=== PATIENT | male | born 1945 | race Caucasian/White ===

== ENCOUNTER 2017-01-25 09:41 | Emergency (ER) | payer MEDICARE, OTHER ==
[2017-01-25 10:00] VITALS: BP 148/89; TEMP 97.6; O2SAT 97
--- NOTE | 2017-01-25 10:09 | ED.PDOC ---
History of Present Illness - General Chief Complaint: Problem Stated Complaint: gentialswelling/redness, incontinent Time Seen by Provider: 01/25/17 10:01 Source: patient Exam Limitations: no limitations - History of Present Illness Initial Comments: Patient presents with intermittent incontinence for 3-4 days. He denies any dysuria nor pain anywhere. Patient has Parkinson's and his gives most of the history. She says that he has not had problems with his prostate before but that this weekend he had several episodes of incontinence and that he has never had that before. No other complaints. Patient has Parkinson's disease. Timing/Duration: other - 4 days Severity: moderate Improving Factors: nothing Worsening Factors: nothing Associated Symptoms: denies symptoms Allergies/Adverse Reactions: Allergies NO KNOWN ALLERGY Allergy (Verified 01/25/17 10:00) Home Medications: Ambulatory Orders Carboxymethylcellulose Sodium [Refresh Tears] 1 - 2 drops BOTH_EYES Q1-2H PRN # 1 bottle 11/23/14 Eplerenone 50 mg PO DAILY 11/23/14 Memantine HCl [Namenda] 10 mg PO DAILY 11/23/14 Metoprolol Succinate [Metoprolol Succinate ER] 25 mg PO DAILY 11/23/14 Moxifloxacin HCl (Ophth) [Vigamox] 1 drop RIGHT_EYE Q8HR #1 bottle 11/23/14 Olmesartan Medoxomil [Benicar] 40 mg PO DAILY 11/23/14 Rivastigmine 9.5MG/24Hr Patch [Exelon PATCH] 9.5 mg TOP DAILY 11/23/14 Rosuvastatin [Crestor] 5 mg PO DAILY 11/23/14 Sildenafil Citrate [Viagra] 100 mg PO PRN 11/23/14 amLODIPine BESYLATE [Norvasc] 5 mg PO DAILY 11/23/14 cloNIDine PATCH 0.1MG/24HR [Rskanyxz-WQL-5 Patch] 1 each TOP DAILY 11/23/14 Review of Systems - Review of Systems Constitutional: States: no symptoms reported EENTM: States: no symptoms reported Respiratory: States: no symptoms reported Cardiology: States: no symptoms reported Genitourinary: States: see HPI Musculoskeletal: States: no symptoms reported Skin: States: no symptoms reported Neurological: States: no symptoms reported Endocrine: States: no symptoms reported Hematologic/Lymphatic: States: no symptoms reported Past Medical History (General) - Patient Medical History Hx Seizures: No Hx Stroke: No Hx Dementia: Yes Hx Asthma: No Hx of COPD: No Hx Cardiac Disorders: No Hx Congestive Heart Failure: No Hx Pacemaker: No Hx Hypertension: Yes Hx Thyroid Disease: No Hx Diabetes: No Hx Gastroesophageal Reflux: No Hx Renal Disease: No Hx Cancer: No Hx of HIV: No Hx Hepatitis C: No Hx MRSA: No Surgical History: other - Vaccination History Hx Tetanus, Diphtheria Vaccination: No Hx Influenza Vaccination: Yes Hx Pneumococcal Vaccination: Yes - Social History Hx Tobacco Use: No Hx Chewing Tobacco Use: No Hx Alcohol Use: Yes Hx Substance Use: No Hx Substance Use Treatment: No Hx Depression: No Hx Physical Abuse: No Hx Emotional Abuse: No Hx Suspected Abuse: No - Activities of Daily Living Hospice Agency (if applicable):: None - Female History Patient : No Family Medical History - Family History Mother Family History: Unknown Hx Family Cancer: Yes Physical Exam - Physical Exam General Appearance: Alert Respiratory: chest non-tender, lungs clear, normal breath sounds Cardiovascular/Chest: normal peripheral pulses, regular rate, rhythm Gastrointestinal/Abdominal: normal bowel sounds, non tender, soft Skin Exam: normal color Progress - Progress Progress: 01/25/17 10:43 UA negative. Departure - Departure Clinical Impression: Incontinence Disposition: Discharge to Home or Self Care Condition: Good Departure Forms: ED Discharge - Pt. Copy, Patient Portal Self Enrollment Diet: resume usual diet Activity: increase activity as tolerated Referrals: Janeth Galloway MD [Primary Care Provider] - 1-2 Weeks Home Medications: Ambulatory Orders Carboxymethylcellulose Sodium [Refresh Tears] 1 - 2 drops BOTH_EYES Q1-2H PRN # 1 bottle 11/23/14 Eplerenone 50 mg PO DAILY 11/23/14 Memantine HCl [Namenda] 10 mg PO DAILY 11/23/14 Metoprolol Succinate [Metoprolol Succinate ER] 25 mg PO DAILY 11/23/14 Moxifloxacin HCl (Ophth) [Vigamox] 1 drop RIGHT_EYE Q8HR #1 bottle 11/23/14 Olmesartan Medoxomil [Benicar] 40 mg PO DAILY 11/23/14 Rivastigmine 9.5MG/24Hr Patch [Exelon PATCH] 9.5 mg TOP DAILY 11/23/14 Rosuvastatin [Crestor] 5 mg PO DAILY 11/23/14 Sildenafil Citrate [Viagra] 100 mg PO PRN 11/23/14 amLODIPine BESYLATE [Norvasc] 5 mg PO DAILY 11/23/14 cloNIDine PATCH 0.1MG/24HR [Zzrawsyt-TDD-8 Patch] 1 each TOP DAILY 11/23/14 Additional Instructions: See your regular doctor and your neurologist about the incontinence.
== END 2017-01-25 10:55 | disposition home or self-care (01) ==
LOC: ER 09:41
DX: R32 Unspecified urinary incontinence (principal); G20 Parkinson's disease; F02.80 Dementia in other diseases classified elsewhere, unspecified severity, without behavioral disturbance, psychotic disturbance, mood disturbance, and anxiety; I10 Essential (primary) hypertension; Z79.899 Other long term (current) drug therapy

== ENCOUNTER 2017-05-15 13:18 | Emergency (ER) | payer MEDICARE, OTHER ==
[2017-05-15 13:50] VITALS: BP 162/94; TEMP 98.6; O2SAT 98
--- NOTE | 2017-05-15 15:00 | ED.PDOC ---
History of Present Illness - General Chief Complaint: Skin/Abrasion/Tear Stated Complaint: Continued bleeding from skin graft Time Seen by Provider: 05/15/17 14:57 Source: patient, RN notes reviewed, Vital Signs reviewed, family Exam Limitations: no limitations - History of Present Illness Timing/Duration: 24 hours Severity: mild Improving Factors: nothing Worsening Factors: nothing Associated Symptoms: denies symptoms Allergies/Adverse Reactions: Allergies NO KNOWN ALLERGY Allergy (Verified 05/15/17 13:43) Home Medications: Ambulatory Orders Carboxymethylcellulose Sodium [Refresh Tears] 1 - 2 drops BOTH_EYES Q1-2H PRN # 1 bottle 11/23/14 Eplerenone 50 mg PO DAILY 11/23/14 Memantine HCl [Namenda] 10 mg PO DAILY 11/23/14 Metoprolol Succinate [Metoprolol Succinate ER] 25 mg PO DAILY 11/23/14 Moxifloxacin HCl (Ophth) [Vigamox] 1 drop RIGHT_EYE Q8HR #1 bottle 11/23/14 Olmesartan Medoxomil [Benicar] 40 mg PO DAILY 11/23/14 Rivastigmine 9.5MG/24Hr Patch [Exelon PATCH] 9.5 mg TOP DAILY 11/23/14 Rosuvastatin [Crestor] 5 mg PO DAILY 11/23/14 Sildenafil Citrate [Viagra] 100 mg PO PRN 11/23/14 amLODIPine BESYLATE [Norvasc] 5 mg PO DAILY 11/23/14 cloNIDine PATCH 0.1MG/24HR [Vlrfsfez-ISW-0 Patch] 1 each TOP DAILY 11/23/14 Review of Systems - Review of Systems Constitutional: Denies: chills, fever EENTM: Denies: ear pain, nose pain, throat pain, mouth pain Respiratory: Denies: cough, orthopnea, short of breath, wheezing Cardiology: Denies: chest pain, edema, palpitations, syncope Gastrointestinal/Abdominal: Denies: abdominal pain, constipation, diarrhea, nausea, vomiting Musculoskeletal: Denies: joint pain, joint swelling, muscle pain, muscle stiffness Skin: States: other - bleeding from op site. Denies: change in hair/nails, dryness Neurological: Denies: anxiety, depressed Past Medical History (General) - Patient Medical History Hx Seizures: No Hx Stroke: Yes - TIA's Hx Dementia: Yes Hx Asthma: No Hx of COPD: No Hx Cardiac Disorders: Yes - hypercholesterolemia Hx Congestive Heart Failure: No Hx Pacemaker: No Hx Hypertension: Yes Hx Thyroid Disease: No Hx Diabetes: No Hx Gastroesophageal Reflux: No Hx Renal Disease: No Hx Cancer: Yes - Skin CA Hx of HIV: No Hx Hepatitis C: No Hx MRSA: No - Vaccination History Hx Tetanus, Diphtheria Vaccination: No Hx Influenza Vaccination: Yes - 2017 Hx Pneumococcal Vaccination: Yes - Social History Hx Tobacco Use: No Hx Chewing Tobacco Use: No Hx Alcohol Use: Yes Hx Substance Use: No Hx Substance Use Treatment: No Hx Depression: No Hx Physical Abuse: No Hx Emotional Abuse: No Hx Suspected Abuse: No - Female History Patient : No Family Medical History - Family History Mother Family History: Unknown Hx Family Cancer: Yes Physical Exam - Physical Exam General Appearance: Alert, Comfortable Ears, Nose, Throat: other - cotton ball in place over skin graft site, blood ladden bandages to the face Neck: non-tender, full range of motion, supple, normal inspection Respiratory: chest non-tender, lungs clear, normal breath sounds Cardiovascular/Chest: normal peripheral pulses, regular rate, rhythm Gastrointestinal/Abdominal: non tender, soft Progress - Progress Progress: 05/15/17 15:02 pressure applied to wound site, bleeding stopped, would redressed Departure - Departure Clinical Impression: Post-op bleeding Time of Disposition: 13:00 Disposition: Discharge to Home or Self Care Condition: Excellent Departure Forms: ED Discharge - Pt. Copy, Patient Portal Self Enrollment Instructions: DI for Abrasion, DI for Post-Surgical Bleeding Diet: full liquid diet Activity: increase activity as tolerated Referrals: Janeth Galloway MD [Primary Care Provider] - 1-2 Weeks Home Medications: Ambulatory Orders Carboxymethylcellulose Sodium [Refresh Tears] 1 - 2 drops BOTH_EYES Q1-2H PRN # 1 bottle 11/23/14 Eplerenone 50 mg PO DAILY 11/23/14 Memantine HCl [Namenda] 10 mg PO DAILY 11/23/14 Metoprolol Succinate [Metoprolol Succinate ER] 25 mg PO DAILY 11/23/14 Moxifloxacin HCl (Ophth) [Vigamox] 1 drop RIGHT_EYE Q8HR #1 bottle 11/23/14 Olmesartan Medoxomil [Benicar] 40 mg PO DAILY 11/23/14 Rivastigmine 9.5MG/24Hr Patch [Exelon PATCH] 9.5 mg TOP DAILY 11/23/14 Rosuvastatin [Crestor] 5 mg PO DAILY 11/23/14 Sildenafil Citrate [Viagra] 100 mg PO PRN 11/23/14 amLODIPine BESYLATE [Norvasc] 5 mg PO DAILY 11/23/14 cloNIDine PATCH 0.1MG/24HR [Iuklmsra-WQF-1 Patch] 1 each TOP DAILY 11/23/14 Additional Instructions: Follow up with your MD in the AM
== END 2017-05-15 15:30 | disposition home or self-care (01) ==
LOC: ER 13:18
DX: L76.21 Postprocedural hemorrhage of skin and subcutaneous tissue following a dermatologic procedure (principal); I10 Essential (primary) hypertension; E78.00 Pure hypercholesterolemia, unspecified; Z86.73 Personal history of transient ischemic attack (TIA), and cerebral infarction without residual deficits; Z79.899 Other long term (current) drug therapy; Z85.828 Personal history of other malignant neoplasm of skin

== ENCOUNTER 2018-06-17 08:28 | Observation (INO) | payer MEDICARE, OTHER ==
--- NOTE | 2018-06-17 09:01 | ED.PDOC ---
History of Present Illness - General Chief Complaint: GI Problem Stated Complaint: blood in stool Time Seen by Provider: 06/17/18 08:53 Information Source: family Exam Limitations: clinical condition - History of Present Illness Initial Comments: Patient comes in with episode of bright red blood per rectum. Patient has advanced Parkinson's disease and dementia and the history is obtained from his . Per his he had multiple bouts of diarrhea lasts night. No abdominal pain, nausea, or emesis. No sick contacts. No fever, chills, cough, or cold symptoms. Patient has not had this problem before with exception of small blood on tissue paper years ago with hemorrhoids. Today patient let his know "I have a problem", then he showed her his adult briefs that had blood in them. She did bring it with her. He denies pain and has not had another episode since. 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 Abdominal Pain Onset Location: other - no pain Pain Radiation: no radiation Quality: other - no pain Timing/Duration: 1-3 hours Improving Factors: nothing Worsening Factors: nothing Associated Symptoms: diarrhea Review of Systems - Review of Systems Constitutional: States: no symptoms reported. Denies: chills, fever, malaise EENTM: States: no symptoms reported Respiratory: States: no symptoms reported. Denies: cough, short of breath Cardiology: States: no symptoms reported. Denies: chest pain Gastrointestinal/Abdominal: States: see HPI Genitourinary: States: no symptoms reported. Denies: dysuria, frequency Past Medical History (General) - Patient Medical History Hx Seizures: No Hx Stroke: Yes - TIA's Hx Dementia: Yes Hx Asthma: No Hx of COPD: No Hx Cardiac Disorders: Yes - hypercholesterolemia Hx Congestive Heart Failure: No Hx Pacemaker: No Hx Hypertension: Yes Hx Thyroid Disease: No Hx Diabetes: No Hx Gastroesophageal Reflux: No Hx Renal Disease: No Hx Cancer: Yes - Skin CA Hx of HIV: No Hx Hepatitis C: No Hx MRSA: No - Vaccination History Hx Tetanus, Diphtheria Vaccination: No Hx Influenza Vaccination: Yes Hx Pneumococcal Vaccination: Yes - Social History Hx Tobacco Use: No Hx Chewing Tobacco Use: No Hx Alcohol Use: Yes Hx Substance Use: No Hx Substance Use Treatment: No Hx Depression: No Hx Physical Abuse: No Hx Emotional Abuse: No Hx Suspected Abuse: No - Female History Patient : No Family Medical History - Family History Mother Family History: Unknown Hx Family Cancer: Yes Physical Exam - Physical Exam General Appearance: Alert, Comfortable, No apparent distress Eyes, Ears, Nose, Throat Exam: PERRL/EOMI, normal ENT inspection, TMs normal, pharynx normal Neck: non-tender, full range of motion, supple, normal inspection Respiratory: chest non-tender, lungs clear, normal breath sounds, no respiratory distress Cardiovascular/Chest: normal peripheral pulses, regular rate, rhythm, no edema, no gallop, no murmur Peripheral Pulses: No deficit Gastrointestinal/Abdominal: normal bowel sounds, non tender, soft Rectal Exam: normal exam, normal rectal tone, other - bright red blood <1/2 cup in adult briefs, Back Exam: normal inspection, no CVA tenderness, no vertebral tenderness Extremity: non-tender, other - compression device on RUE Neurologic: alert, other - fronzen expression with decreased motor bilaterally conistent with Parkinson's Skin Exam: normal color Progress - Progress Progress: 06/17/18 09:56 patient looks good and has no other bleeding since arrival. However, there was approximately 1/2 cup of blood in his brief and with his age and medical problems he is at high risk for sudden decompensation if he continues to bleed. Have called career development consultant ARSH Santana and he will admit for obs - Results/Orders Results/Orders: 06/17/18 09:12 TYPE AND SCREEN Stat Laboratory Results WBC 5.5 K/mm3 (4.8-10.8) 06/17/18 09:12 RBC 3.92 M/mm3 (4.70-6.10) L 06/17/18 09:12 Hgb 12.2 gm/dL (14.0-18.0) L 06/17/18 09:12 Hct 36.1 % (42.0-52.0) L 06/17/18 09:12 MCV 91.9 fl (80.0-94.0) 06/17/18 09:12 MCH 31.1 pg (27.0-31.0) H 06/17/18 09:12 MCHC 34.0 g/dL (33.0-37.0) 06/17/18 09:12 RDW 14.6 % (11.5-14.5) H 06/17/18 09:12 Plt Count 212 K/mm3 (130-400) 06/17/18 09:12 MPV 6.9 fl (7.40-10.4) L 06/17/18 09:12 Absolute Neuts (auto) 4.20 K/uL (1.8-6.8) 06/17/18 09:12 Absolute Lymphs (auto) 0.70 K/uL (1.0-3.4) L 06/17/18 09:12 Absolute Monos (auto) 0.40 K/uL (0.2-0.8) 06/17/18 09:12 Absolute Eos (auto) 0.10 K/uL (0.0-0.4) 06/17/18 09:12 Absolute Basos (auto) 0.00 K/uL (0.0-0.1) 06/17/18 09:12 Neutrophils % 77.5 % (42.0-78.0) 06/17/18 09:12 Lymphocytes % 12.9 % (20.0-50.0) L 06/17/18 09:12 Monocytes % 7.8 % (2.0-9.0) 06/17/18 09:12 Eosinophils % 1.2 % (1.0-5.0) 06/17/18 09:12 Basophils % 0.6 % (0.0-2.0) 06/17/18 09:12 PT 10.5 SECONDS (9.0-10.9) 06/17/18 09:12 INR 1.05 (0.9-1.15) 06/17/18 09:12 PTT (SP) 26.5 SECONDS (21.8-31.6) 06/17/18 09:12 Sodium 138 mmol/L (135-145) 06/17/18 09:12 Potassium 3.1 mmol/L (3.6-5.0) L 06/17/18 09:12 Chloride 106 mmol/L (101-111) 06/17/18 09:12 Carbon Dioxide 24 mmol/L (21-31) 06/17/18 09:12 Anion Gap 11.1 (12-18) L 06/17/18 09:12 BUN 22 mg/dL (7-18) H 06/17/18 09:12 Creatinine 1.00 mg/dL (0.6-1.3) 06/17/18 09:12 BUN/Creatinine Ratio 22.0 (10-20) H 06/17/18 09:12 Random Glucose 103 mg/dL (70-105) 06/17/18 09:12 Serum Osmolality 279.3 mOsm/L (275-295) 06/17/18 09:12 Calcium 9.0 mg/dL (8.4-10.2) 06/17/18 09:12 Total Bilirubin 0.5 mg/dL (0.2-1.0) 06/17/18 09:12 AST 21 IU/L (10-42) 06/17/18 09:12 ALT < 8 IU/L (10-60) L 06/17/18 09:12 Alkaline Phosphatase 54 IU/L (42-121) 06/17/18 09:12 Serum Total Protein 6.6 gm/dL (6.4-8.2) 06/17/18 09:12 Albumin 3.9 g/dl (3.2-5.5) 06/17/18 09:12 Globulin 2.7 gm/dL (2.3-3.5) 06/17/18 09:12 Albumin/Globulin Ratio 1.4 (1.1-1.9) 06/17/18 09:12 Departure - Departure Clinical Impression: Lower GI bleed Disposition: Admit Patient Condition: Good Departure Forms: ED Discharge - Pt. Copy, Patient Portal Self Enrollment Referrals: Janeth Galloway MD [Primary Care Provider] - 1-2 Weeks Home Medications: Ambulatory Orders Eplerenone 50 mg PO DAILY 11/23/14 Metoprolol Succinate [Metoprolol Succinate ER] 25 mg PO DAILY 11/23/14 Olmesartan Medoxomil [Benicar] 40 mg PO DAILY 11/23/14 Amlodipine Besylate 5 mg PO BID 06/17/18 Benfotiamine 150 mg PO AC 06/17/18 Calcium 600 mg PO DAILY 06/17/18 Carbidopa-Levodopa [Carbidopa/Levodopa 25-250 mg] 0.5 tab PO DAILY 06/17/18 Cholecalciferol [Vitamin D3] 5,000 unit PO DAILY 06/17/18 Chromium Picolinate 800 mcg PO DAILY 06/17/18 Cinnamon 1,000 mg PO DAILY 06/17/18 Coenzyme Q10 (Ubidecarenone) [Coq-10] 100 mg PO DAILY 06/17/18 Donepezil Hydrochloride [Donepezil HCl] 10 mg PO BID 06/17/18 Folic Acid,B2,B6,B12 [Cerefolin] 1 ea PO .MON,.Tue06/17/18 Hydroxyzine HCl 10 mg PO BEDTIME 06/17/18 Magnesium Gluconate 500 mg PO DAILY 06/17/18 Memantine HCl [Namenda Xr] 28 mg PO DAILY 06/17/18 [place]-3 Fatty Acids [[place]-3 Fish Oil] 1 cap PO .TUE,Tue06/17/18 Phytonadione [Vitamin K] 100 mcg PO DAILY 06/17/18 Ropinirole Hydrochloride [Ropinirole HCl] 3 mg PO TID 06/17/18 Vitamin E [Natural Vitamin E] 1,000 unit PO .TUE,Tue06/17/18 Zinc W/ Vitamin C & B6 1 tablet PO DAILY 06/17/18 Zonisamide [Zonegran] 25 mg PO TID 06/17/18 Decision To Admit - Decistion To Admit Decision to Admit Reason: Admit from ER Decision to Admit Date: 06/17/18 Decision to Admit Time: 09:58
[2018-06-17] MEDS ORDERED: SODIUM CHLORIDE 0.9% (FLUSH) 10 ML SYG IV PRN (12:39)
[2018-06-17] MEDS ORDERED: ACETAMINOPHEN 325 MG TAB PO PRN (12:39)
[2018-06-17] MEDS ORDERED: POTASSIUM CHLORIDE 20 MEQ TAB PO ONE (12:46)
[2018-06-17] MEDS ORDERED: IV SET AND CAP CHANGE INJ INJ SCH (13:00)
[2018-06-17] MEDS ORDERED: ZONISAMIDE 25 MG CAP PO SCH (15:00)
[2018-06-17] MEDS ORDERED: BENFOTIAMINE 150 MG PO SCH (16:30)
[2018-06-17 19:08] VITALS: BP 148/83; TEMP 98.3; O2SAT 99
[2018-06-17] MEDS ORDERED: amLODIPine BESYLATE 5 MG TAB PO SCH (21:00)
[2018-06-17] MEDS ORDERED: DONEPEZIL HCL 5 MG TAB PO SCH (21:00)
[2018-06-17] MEDS ORDERED: hydrOXYzine HCl 10 MG TAB PO SCH (21:00)
--- NOTE | 2018-06-18 08:16 | SSS ---
SUPERVISING PHYSICIAN: Bradley Pena MD CHIEF COMPLAINT: Blood in stools.. HISTORY OF PRESENT ILLNESS: Mr. Hansen is a 73 year-old male patient with a history of Parkinson's disease with some dementia. As he does have dementia, the majority of the history was obtained from his . His notes he has had a couple of episodes of diarrhea last night but no reported abdominal samuels, nausea or vomiting. She notes that this morning he was sitting in his chair, he does wear briefs, he brought to her attention he had a problem and when he showed her the brief, there was some blood present. She did bring the brief with her and on examination there was some obvious blood-tinged material but no gross blood clots. At the time of the admission to the Emergency Room, he denied any pain, had not had any additional episodes by the time he was seen in the Emergency Room and placed in observation this morning. He has had a colonoscopy according to his , approximately 5 years previous with no abnormal findings. He does have a past history apparently with issues with hemorrhoids but none in the recent years. Dr. Milligan, Emergency Room physician, requested the patient be placed in observation for close monitoring and further evaluation. 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 The patient was placed in observation stable condition. PAST MEDICAL HISTORY: 1. Parkinson's disease. 2. 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 3. Hypertension controlled. 4. 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 PAST SURGICAL HISTORY: 1. 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 CURRENT MEDICATIONS: 1. Vitamin-K 100 mcg daily. 2. Benfotiamine 150 mg daily. 3. Chromium Picolinate 800 mcg daily. 4. Carbidopa Levodopa 25/250 mg, one-half tablet daily. 5. Magnesium gluconate 500 mg daily. 6. Coenzyme Q10, 100 mg daily. 7. Cinnamon 1000 mg daily. 8. Vitamin E 1000 units on Tuesday and Tuesday. 9. [place] 3Fatty Acid, 1 capsule on Tuesday and Tuesday. 10. Calcium 600 mg daily. 11. Vitamin D3 5000 units daily. 12. Vitamin C and B6, 1 tablet daily. 13. Namenda XR 28 mg daily. 14. Donepezil 10 mg b.i.d. 15. Hydroxyzine 10 mg at bedtime. 16. Amlodipine 5 mg b.i.d. 17. Zonegran 25 mg t.i.d. 18. Ropinirole 3 mg t.i.d. 19. Eplerenone 50 mg daily. 20. Benicar 40 mg daily. 21. Folic acid B2, B6, B12, one tablet Tuesday and Tuesday. 22. Metoprolol succinate extended release 25 mg daily. ALLERGIES: NO KNOWN DRUG ALLERGIES. FAMILY HISTORY: Mother at age 53 due to stomach cancer complications. Father at age 84, had Alzheimer's. He has one brother who is healthy. He and his had 2 children, one son who is healthy and one secondary to complications of blood clots. 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 He lives in [place] with his and has been over 50 years. He does drink alcohol on rare occasions, normally wine, but has never smoked or used illicit drugs. His primary care physician is Dr. Janeth Galvan. REVIEW OF SYSTEMS: CONSTITUTIONAL: Negative for fevers, chills, general malaise or unintentional weight loss. HEENT: Negative for earaches, sore throats, nasal congestion. RESPIRATORY: Negative for cough, shortness of breath or wheezing. CARDIOVASCULAR: Negative for chest pain, palpitations or syncopal episodes. GASTROINTESTINAL: As noted in history of present illness. Positive for blood per rectum and diarrhea. Negative for abdominal pain, nausea or vomiting. GENITOURINARY: Negative for dysuria, hematuria polyuria. NEUROLOGICAL: Positive for Parkinson's and dementia but negative for seizures. 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 HEMATOLOGICAL: Denies any easy bruising, unexplained bleeding episodes and has no history of clotting disorders. PHYSICAL EXAMINATION: VITAL SIGNS: Temperature 97.6, pulse 63, blood pressure 139/90, respirations 16, saturation 99% on room air. At time of discharge, temperature was 97.6, pulse 56, blood pressure 129/76, respirations 20, saturation 96% on room air. Admission weight was 68.0 kg. GENERAL: The patient is well-nourished and well-hydrated. He appears to be in no acute distress, very comfortable and alert. HEENT: Tympanic membranes are clear bilaterally. Oropharynx is pink and moist without any lesions. NECK: Supple, non-tender, full range of motion, no jugular venous distention. CHEST: Clear to auscultation bilaterally without any rhonchi, rales, or wheezes. CARDIOVASCULAR: Heart regular rate and rhythm without appreciable murmurs, rubs, or gallops. ABDOMEN: Soft, non-tender, positive bowel sound. Retrogram deferred, done by Dr. Milligan in the Emergency Room and reported normal exam, normal rectal tone and as noted on admission, bright red blood in patient's brief. BACK: Normal inspection, no CVA tenderness or vertebral tenderness. EXTREMITIES: Moves all extremities all ad hunter. He does have a compression device to the right upper extremity for chronic lymphedema. Lower extremities just show a trace of edema, no clubbing or cyanosis. NEUROLOGIC: He is alert, very slow in movement but is bilateral and is consistent for Parkinson's and per is at baseline neurological status. He has a very flat affect but does answer questions. SKIN: [place], warm and dry with no lesions or rashes. LABORATORY: CBC on admission showed a white count of 5,500 with hemoglobin initially of 12.2, hematocrit 36.1, platelet count at 212,000, differential without a left shift. Repeat H&H at 4 hours showed hemoglobin 11.9 and hematocrit 35.5. Again, prior to discharge, at 12 hours post admission hemoglobin was 12, hematocrit 34.8. Coagulation studies showed normal PT/PTT. Chemistries showed just a mild low potassium at 3.1, BUN slightly elevated at 22, creatinine 1, glucose 103. Liver functions showed to be within normal limits. RADIOLOGY: No radiographic studies were completed. HOSPITAL COURSE: Mr. Hansen was placed in observation from the Emergency Room with concerns for a possible GI blood by red blood per rectum as noted in the history of present illness. He was without any pain on admission and initial H&H again showed to be hemoglobin at 12.2 and hematocrit 36.1. Once on the medical/surgical floor, the patient was observed on telemetry and closely monitored with repeat serial H&H with last one prior to discharge showing hemoglobin 12.0 and hematocrit 34.8. The patient had no recurrence of any diarrhea, no recurrence of bright red blood per rectum, was not having any pain. He had tolerated lunch and dinner without any complications and was showing stable vital signs. It was felt he was demonstrating no acute bleed at that point and after further discussion with both the patient and his , the decision was to discharge home as they live right next to the hospital and then have a repeat H&H and potassium on Tuesday as an outpatient and to followup with his primary care physician next week. I did give warnings as to return to the hospital should he have any recurrence of bleeding or any other concerning symptoms. Both patient and his voiced understanding of discharge instructions and were in agreement to care plan. In regards to his hypokalemia, he was given one single oral dose of potassium. ADMISSION DIAGNOSIS: 1. Rectal bleed, uncertain etiology, possible hemorrhoids. 2. Electrolyte imbalanc to include hypokalemia. 3. Diarrhea with no reported complications or pain or nausea. 4. History of Parkinson's with dementia. 5. Hypertension. DISCHARGE DIAGNOSIS: 1. Rectal bleeding likely source to be hemorrhoids but needing close followup with GI specialist at discharge with no further episodes of bleeding prior to discharge. 2. Electrolyte imbalance to include hypokalemia. 3. Diarrhea with no reported complications or pain or nausea. 4. History of Parkinson's with dementia. 5. Hypertension. PLAN: Mr. Hansen was discharged after a brief observation. Again, he was showing no recurrence of symptoms, no more bright red blood per rectum and was showing to be very comfortable and tolerating diet. He was instructed that he should followup with Dr. Galvan, his primary care physician in [place] and call her next week for a followup appointment. He certainly will need a colonoscopy and followup with GI specialist. After talking to the , his last colonoscopy was done in [place] with Dr. Cole. I did recommend that they at least touch base with Dr. Cole to get a followup appointment with him as well. She was given warnings that if he had any recurrence of symptoms or other worsening symptoms, she is to bring him back to the Emergency Room for further evaluation. I made arrangements to have outpatient labs done on Tuesday to include a hemoglobin and hematocrit and a recheck of potassium level. Continue diet at discharge, regular diet as tolerated. Activities to increase as tolerated. Care: Repeat H&H and potassium level as outpatient on Tuesday. No medications were prescribed at discharge. All home medications prior to admission were continued as is. CONDITION ON DISCHARGE: Stable. DISPOSITION: Patient was discharged to the care of his . #[id number] [facility]
[2018-06-18] MEDS ORDERED: NON-FORMULARY MEDICATION 1 EA MIS (Memantine Hcl [Namenda Xr] 28 MG) PO SCH (09:00)
[2018-06-18] MEDS ORDERED: NON-FORMULARY MEDICATION 1 EA MIS (Olmesartan Medoxomil [Benicar] 40 MG) PO SCH (09:00)
[2018-06-18] MEDS ORDERED: METOPROLOL SUCCINATE XL 25 MG TAB PO SCH (09:00)
[2018-06-18] MEDS ORDERED: CARBIDOPA PO SCH (09:00)
[2018-06-18] MEDS ORDERED: LEVODOPA PO SCH (09:00)
[2018-06-18] MEDS ORDERED: EPLERENONE 50 MG PO SCH (09:00)
[2018-06-18] MEDS ORDERED: [UNRECOGNIZED DRUG - OTHER] PO SCH (09:00)
== END 2018-06-17 19:35 | disposition home or self-care (01) ==
LOC: ER 08:28 → MS 10:38
PROVIDERS: ADMIT Nurse Practitioner Family; ATTEND Nurse Practitioner Family
DX: K62.5 Hemorrhage of anus and rectum (principal); E87.6 Hypokalemia; E87.8 Other disorders of electrolyte and fluid balance, not elsewhere classified; R19.7 Diarrhea, unspecified; G20 Parkinson's disease; F02.80 Dementia in other diseases classified elsewhere, unspecified severity, without behavioral disturbance, psychotic disturbance, mood disturbance, and anxiety; I10 Essential (primary) hypertension; E78.00 Pure hypercholesterolemia, unspecified; Z79.899 Other long term (current) drug therapy; Z85.89 Personal history of malignant neoplasm of other organs and systems; Z80.0 Family history of malignant neoplasm of digestive organs; Z86.73 Personal history of transient ischemic attack (TIA), and cerebral infarction without residual deficits

== ENCOUNTER → 2018-06-19 | Outpatient (CLI) | payer MEDICARE, OTHER | LOC: LAB.O 10:15 | PROVIDERS: ATTEND Nurse Practitioner Family | DX: K62.5 Hemorrhage of anus and rectum (principal); E87.6 Hypokalemia ==

== ENCOUNTER → 2018-07-28 | Outpatient (CLI) | payer MEDICARE, OTHER ==
--- NOTE | 2018-07-28 09:37 | US ---
EXAM DESCRIPTION: Venous,Upper Extremity RT CLINICAL HISTORY: PAIN IN RIGHT UPPER ARM COMPARISON: None Available. TECHNIQUE: Right upper extremity venous duplex with grayscale and color Doppler images FINDINGS: Doppler evaluation of the right upper extremity deep veins was performed. Normal color flow is seen in the right internal jugular vein, right subclavian, axillary and basilic veins as well as right brachial, radial and ulnar veins. The cephalic vein area of the upper arm was surveyed but the cephalic vein was not seen. Cephalic vein is seen more distally with no thrombosis. Normal venous compressibility and flow augmentation. Large septated fluid collection at the right elbow is seen in palpable swollen area which measures 5 x 3.8 x 4 cm. Internal septations are noted. If this is posterior in location, olecranon bursitis would be most likely which can be seen related to trauma or gout. This is anterior in location, lymphocele, seroma or old hematoma might all be considered. Clinical correlation recommended. Edematous changes in the right forearm are noted. IMPRESSION: Negative for evidence of deep venous thrombosis on right upper extremity venous Doppler sonogram. Large fluid collection at the level of the right elbow. Electronically signed by: Gurjti Chambers MD 07/28/2018 9:34 AM [employer]
== END ==
LOC: US 08:30
PROVIDERS: ATTEND Family Medicine
DX: M79.621 Pain in right upper arm (principal); M25.421 Effusion, right elbow

== ENCOUNTER 2018-08-14 08:26 | Observation (INO) | payer MEDICARE, OTHER ==
--- NOTE | 2018-08-14 09:15 | ED.PDOC ---
History of Present Illness - General Chief Complaint: Respiratory Problem Stated Complaint: Pt complains of persistent cough and general weak Time Seen by Provider: 08/14/18 09:00 Source: family Exam Limitations: other - HPI AND ROS LIMITED DUE TO DEMENTIA - History of Present Illness Timing/Duration: getting worse Severity: moderate Improving Factors: nothing Worsening Factors: nothing Associated Symptoms: cough, other - GENERALIZED WEAKNESS Allergies/Adverse Reactions: Allergies NO KNOWN ALLERGY Allergy (Verified 08/14/18 09:00) Home Medications: Ambulatory Orders Eplerenone 50 mg PO DAILY 11/23/14 Metoprolol Succinate [Metoprolol Succinate ER] 25 mg PO DAILY 11/23/14 Olmesartan Medoxomil [Benicar] 40 mg PO DAILY 11/23/14 Amlodipine Besylate 5 mg PO BID 06/17/18 Benfotiamine 150 mg PO TID 06/17/18 Calcium 600 mg PO BID 06/17/18 Carbidopa-Levodopa [Carbidopa/Levodopa 25-250 mg] 0.5 tab PO TID 06/17/18 Cholecalciferol [Vitamin D3] 5,000 unit PO DAILY 06/17/18 Chromium Picolinate 800 mcg PO DAILY 06/17/18 Cinnamon 1,000 mg PO DAILY 06/17/18 Coenzyme Q10 (Ubidecarenone) [Coq-10] 100 mg PO DAILY 06/17/18 Donepezil Hydrochloride [Donepezil HCl] 10 mg PO BID 06/17/18 Folic Acid,B2,B6,B12 [Cerefolin] 1 ea PO .MON,.Tue06/17/18 Hydroxyzine HCl 10 mg PO BEDTIME 06/17/18 Magnesium Gluconate 500 mg PO DAILY 06/17/18 Memantine HCl [Namenda Xr] 28 mg PO DAILY 06/17/18 [place]-3 Fatty Acids [[place]-3 Fish Oil 500 mg] 1 cap PO .TUE,Tue06/17/18 Phytonadione [Vitamin K] 100 mcg PO DAILY 06/17/18 Ropinirole Hydrochloride [Ropinirole HCl] 3 mg PO TID 06/17/18 Vitamin E [Natural Vitamin E] 1,000 unit PO .TUE,Tue06/17/18 Zinc W/ Vitamin C & B6 1 tablet PO DAILY 06/17/18 Zonisamide [Zonegran] 25 mg PO TID 06/17/18 Review of Systems - Review of Systems Constitutional: States: weakness. Denies: chills, fever EENTM: Denies: nose congestion Respiratory: States: cough. Denies: short of breath Cardiology: Denies: chest pain, syncope Gastrointestinal/Abdominal: Denies: diarrhea, vomiting Genitourinary: Denies: frequency, hematuria Musculoskeletal: States: joint swelling Skin: Denies: change in color, lesions Neurological: States: weakness Endocrine: States: no symptoms reported Hematologic/Lymphatic: States: no symptoms reported Past Medical History (General) - Patient Medical History Hx Seizures: No Hx Stroke: No Hx Dementia: Yes Hx Asthma: No Hx of COPD: No Hx Cardiac Disorders: No Hx Congestive Heart Failure: No Hx Pacemaker: No Hx Hypertension: Yes Hx Thyroid Disease: No Hx Diabetes: No Hx Gastroesophageal Reflux: No Hx Renal Disease: No Hx Cancer: Yes - Sacoma R arm Hx of HIV: No Hx Hepatitis C: No Hx MRSA: No - Vaccination History Hx Tetanus, Diphtheria Vaccination: Yes Hx Influenza Vaccination: Yes Hx Pneumococcal Vaccination: Yes Immunizations Up to Date: Yes - Social History Hx Tobacco Use: No Hx Chewing Tobacco Use: No Hx Alcohol Use: Yes - None recent Hx Substance Use: No Hx Substance Use Treatment: No Hx Depression: No Hx Physical Abuse: No Hx Emotional Abuse: No Hx Suspected Abuse: No - Female History Patient is a Female of Child Bearing Age (10 -59 yrs old): No Patient : No Family Medical History - Family History Mother Family History: Unknown Living Status: Unknown Hx Family Cancer: Yes Physical Exam - Physical Exam General Appearance: Alert, Comfortable, No apparent distress, Well Developed, Well Groomed, Well Hydrated Eye Exam: bilateral normal ENT Exam: hearing grossly normal Neck: supple, normal inspection Respiratory: lungs clear, normal breath sounds, no respiratory distress Cardiovascular/Chest: regular rate, rhythm, no murmur, bradycardia Gastrointestinal/Abdominal: normal bowel sounds, non tender, soft Extremity: non-tender, swelling - CHRONIC LYMPHEDEMA TO RIGHT ARM AND RIGHT LEG Neurologic: alert Skin Exam: normal color, warm/dry Lymphatic: no adenopathy Progress - Progress Progress: 08/14/18 11:10 PT RESTING COMFORTABLY, LABS AND DIAGNOSTICS DISCUSSED WITH FAMILY AT BEDSIDE. WILL TREAT SINUSITIS WITH ORAL AUGMENTIN AND WILL ADMIT FOR IV FLUIDS. - Results/Orders Results/Orders: Laboratory Tests 08/14/18 08/14/18 08/14/18 09:08 09:08 09:08 WBC 6.0 RBC 3.77 L Hgb 11.6 L Hct 34.4 L MCV 91.2 MCH 30.7 MCHC 33.7 RDW 13.8 Plt Count 227 MPV 7.7 Absolute Neuts (auto) 4.50 Absolute Lymphs (auto) 0.70 L Absolute Monos (auto) 0.60 Absolute Eos (auto) 0.10 Absolute Basos (auto) 0.00 Neutrophils % 75.1 Lymphocytes % 12.2 L Monocytes % 10.6 H Eosinophils % 1.4 Basophils % 0.7 Sodium 137 Potassium 3.5 L Chloride 103 Carbon Dioxide 24 Anion Gap 13.5 BUN 18 Creatinine 1.05 BUN/Creatinine Ratio 17.1 Random Glucose 93 Serum Osmolality 275.4 Calcium 8.8 Total Bilirubin 0.6 AST 18 ALT < 8 L Alkaline Phosphatase 62 Creatine Kinase 70 CK-MB (CK-2) 2.1 CK-MB (CK-2) % 3.00 Troponin I < 0.02 B-Natriuretic Peptide 123.0 H Serum Total Protein 7.1 Albumin 3.7 Globulin 3.4 Albumin/Globulin Ratio 1.1 Urine Color Urine Appearance Urine pH Ur Specific [place] Urine Protein Urine Glucose (UA) Urine Ketones Urine Blood Urine Nitrite Urine Bilirubin Urine Urobilinogen Ur Leukocyte Esterase Urine RBC Urine WBC Ur Epithelial Cells Amorphous Sediment Urine Bacteria 08/14/18 09:40 WBC RBC Hgb Hct MCV MCH MCHC RDW Plt Count MPV Absolute Neuts (auto) Absolute Lymphs (auto) Absolute Monos (auto) Absolute Eos (auto) Absolute Basos (auto) Neutrophils % Lymphocytes % Monocytes % Eosinophils % Basophils % Sodium Potassium Chloride Carbon Dioxide Anion Gap BUN Creatinine BUN/Creatinine Ratio Random Glucose Serum Osmolality Calcium Total Bilirubin AST ALT Alkaline Phosphatase Creatine Kinase CK-MB (CK-2) CK-MB (CK-2) % Troponin I B-Natriuretic Peptide Serum Total Protein Albumin Globulin Albumin/Globulin Ratio Urine Color Yellow Urine Appearance Cloudy Urine pH 7.0 Ur Specific [place] 1.020 Urine Protein Negative Urine Glucose (UA) Negative Urine Ketones Trace Urine Blood Negative Urine Nitrite Negative Urine Bilirubin Negative Urine Urobilinogen 0.2 Ur Leukocyte Esterase Negative Urine RBC 0 Urine WBC 0 Ur Epithelial Cells 0 Amorphous Sediment 2+ Urine Bacteria 0 - EKG/XRAY/CT EKG: Joseph - @47BPM, NL INTERVALS, LAD, POOR R WAVE PROGRESSION, Sinus, nonspecific ST T wave Chg - NO PREVIOUS EKG FOR COMPARISON XRAY: chest - NO ACTIVE DISEASE CT: HEAD CT Ordered: Yes - PANSINUSITIS, NO ACUTE HEMMORHAGE CT Interpretation Call Back: No Departure - Departure Clinical Impression: Dehydration, Generalized muscle weakness, Acute pansinusitis, Closed head injury, Hypokalemia, Cough, Bradycardia Time of Disposition: 11:13 Disposition: Admit Patient Condition: Fair Departure Forms: ED Discharge - Pt. Copy, Patient Portal Self Enrollment Referrals: Janeth Galloway MD [Primary Care Provider] - 1-2 Weeks Home Medications: Ambulatory Orders Eplerenone 50 mg PO DAILY 11/23/14 Metoprolol Succinate [Metoprolol Succinate ER] 25 mg PO DAILY 11/23/14 Olmesartan Medoxomil [Benicar] 40 mg PO DAILY 11/23/14 Amlodipine Besylate 5 mg PO BID 06/17/18 Benfotiamine 150 mg PO TID 06/17/18 Calcium 600 mg PO BID 06/17/18 Carbidopa-Levodopa [Carbidopa/Levodopa 25-250 mg] 0.5 tab PO TID 06/17/18 Cholecalciferol [Vitamin D3] 5,000 unit PO DAILY 06/17/18 Chromium Picolinate 800 mcg PO DAILY 06/17/18 Cinnamon 1,000 mg PO DAILY 06/17/18 Coenzyme Q10 (Ubidecarenone) [Coq-10] 100 mg PO DAILY 06/17/18 Donepezil Hydrochloride [Donepezil HCl] 10 mg PO BID 06/17/18 Folic Acid,B2,B6,B12 [Cerefolin] 1 ea PO .MON,.Tue06/17/18 Hydroxyzine HCl 10 mg PO BEDTIME 06/17/18 Magnesium Gluconate 500 mg PO DAILY 06/17/18 Memantine HCl [Namenda Xr] 28 mg PO DAILY 06/17/18 [place]-3 Fatty Acids [[place]-3 Fish Oil 500 mg] 1 cap PO .MON,Tue06/17/18 Phytonadione [Vitamin K] 100 mcg PO DAILY 06/17/18 Ropinirole Hydrochloride [Ropinirole HCl] 3 mg PO TID 06/17/18 Vitamin E [Natural Vitamin E] 1,000 unit PO .MON,Tue06/17/18 Zinc W/ Vitamin C & B6 1 tablet PO DAILY 06/17/18 Zonisamide [Zonegran] 25 mg PO TID 06/17/18 Decision To Admit - Decistion To Admit Decision to Admit Reason: Admit from ER Decision to Admit Date: 08/14/18 Decision to Admit Time: 11:13 - CASE DISCUSSED WITH ASHWINI LINDER NP WHO AGREES TO ADMIT
--- NOTE | 2018-08-14 09:36 | RAD ---
EXAM DESCRIPTION: Chest,1 View CLINICAL HISTORY: cough, weakness COMPARISON: None available FINDINGS: Accounting for leftward rotation and AP technique, the cardiomediastinal silhouette is unremarkable. There is no airspace consolidation or pleural effusion. The bronchovascular markings are within normal limits, and the lungs are not hyperinflated. There is no pneumothorax or acute fracture. IMPRESSION: Negative exam. Electronically signed by: John Joe MD 08/14/2018 9:33 AM CDT
[2018-08-14] MEDS ORDERED: POTASSIUM CHLORIDE 20 MEQ TAB PO ONE (09:59)
[2018-08-14] MEDS ORDERED: SODIUM CHLORIDE 0.9% 1000ML 1,000 ML IVS ONE (10:14)
--- NOTE | 2018-08-14 10:41 | CT ---
EXAM DESCRIPTION: Head CLINICAL HISTORY: 73 years Male, FALL COMPARISON: MRI brain 03/27/2013. TECHNIQUE: Axial images are obtained from the skull base to the vertex without intravenous contrast with images viewed on bone and brain windows. Coronal and sagittal reformations were provided. This exam was performed according to our departmental dose-optimization program, which includes automated exposure control, adjustment of the mA and/or kV according to patient size and/or use of iterative reconstruction technique. FINDINGS: Brain Parenchyma, ventricles, meninges, and extra-axial spaces: Moderate generalized cerebral and loss. Mild white matter hypodensities in both cerebral hemispheres are nonspecific but likely relate to ischemic small vessel disease. No acute intracranial hemorrhage. No abnormal extra-axial fluid collections are present. No mass effect or herniation present. Vascular Structures: No hyperdense arteries or veins. Atherosclerosis is within the carotid siphons. Calvarium, paranasal sinuses, mastoids, and orbits: Calvarium is intact. Severe thecal sac thickening of the left maxillary and bilateral ethmoid sinuses. Mild mucosal thickening in the right maxillary, right sphenoid, and bilateral frontal sinuses. Mastoid air cells are well pneumatized. Orbits are unremarkable. IMPRESSION: 1. No acute intracranial process. 2. Senescent changes. 3. Polysinusitis. Electronically signed by: Percy Pinon MD 08/14/2018 10:38 AM CDT
[2018-08-14] MEDS ORDERED: AMOXICILLIN & POT CLAVULANATE 875 MG TAB PO ONE (11:27)
--- NOTE | 2018-08-14 11:37 | HP ---
SUPERVISING PHYSICIAN: Ronny Braswell MD CHIEF COMPLAINT: Persistent cough and generalized weakness. 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 His reports that over the last several days he has developed a cough that has been very persistent as well as he has had increasing weakness to the point where yesterday and this morning she was barely able to assist him out of the bed and to the bedside commode. In fact, today she was unable to provide any assistance as he was unable to help her, therefore, she required assistance with EMS. The patient was brought to the Emergency Room for evaluation. Initial laboratory studies showed a mild hypokalemia and a mild elevated BNP. His urinalysis was showing to be within normal limits. Vital signs showed he had a low grade fever at 99.3 but his blood pressure was 120/75, respirations 95. A chest x-ray was completed, single-view, with no acute findings. He did have a CT of the head without contrast and per radiology interpretation showed no acute intracranial process. There was note of polysinusitis. Dr. Denson, Emergency Room physician, is requesting the patient be placed in observation for IV therapy as the patient is showing to be clinically dehydrated which may be contributing to his worsening weakness but only source of possible infection at this point is a sinusitis which she has already started him on Augmentin. Given the patient's advanced age at 73 and underlying history of Parkinson's disease with dementia and the fact that the patient requires a significant amount of assistance at home with any of his activities of daily living and his is unable to provide any assistance at this point, the patient will be placed in observation for further monitoring, IV therapy and continued antibiotic coverage for the sinusitis. PAST MEDICAL HISTORY: 1. Parkinson's disease. 2. 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 3. Hypertension controlled. 4. 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 PAST SURGICAL HISTORY: 1. Tumor removal of soft tissue sarcoma of the right upper extremity in 2017 and 2018 resulting in chronic lymphedema. CURRENT MEDICATIONS: 1. Zonegran 25 mg t.i.d.. 2. Zinc supplement 1 tablet daily. 3. Vitamin E 1000 units Tuesday through Tuesday. 4. Ropinirole 3 mg t.i.d. 5. Vitamin-K 100 mcg daily. 6. Hardin 50 fatty acid, 1 tablet Tuesday through Tuesday. 7. Benicar 40 mg daily. 8. Metoprolol Succinate extended release 25 mg daily. 9. Namenda XR 28 mg daily. 10. Magnesium gluconate 500 mg daily. 11. Hydroxyzine 10 mg b.i.d. 12. Folic acid replacement, B2, B6, B12, one Tuesday through Tuesday. 13. Eplerenone 50 mg daily. 14. Donepezil 10 mg b.i.d. 15. Coenzyme Q10, 100 mg daily. 16. Cinnamon 1000 mg daily. 17. Chromium picolinate 800 mg daily. 18. Vitamin D3 5000 units daily. 19. Carbidopa/Levodopa 25 - 259 mg, half tablet t.i.d. 20. Calcium 600 mg b.i.d. 21. Benfotiamine 150 mg t.i.d. 22. Amlodipine 5 mg b.i.d. ALLERGIES: NO KNOWN DRUG ALLERGIES. FAMILY HISTORY: Mother at age 53 due to stomach cancer complications. Father at age 84 secondary to Alzheimer's complications. He has one brother who is healthy. He and his had 2 children, one son who is healthy and one secondary to complications of blood clots. 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 He lives in [place] with his and has been over 50 years. He currently lives at home. He does rarely drink alcohol which normally is in the form of wine but has never smoked or used illicit drugs. His primary care physician is Dr. Janeth Galvan. REVIEW OF SYSTEMS: Difficult to fully obtain secondary to the patient's dementia. Therefore, the review of systems is obtained with the 's assistance. CONSTITUTIONAL: Denies fevers, chills, or unexplained weight loss but generalized weakness which is increasing. HEENT: Negative for earaches, sore throats, he does have some mild nasal congestion with some postnasal drip. RESPIRATORY: Positive for persistent cough, nonproductive, no shortness of breath or wheezing. CARDIOVASCULAR: No reported chest pain, palpitations or syncopal episodes. GASTROINTESTINAL: No reported bowel habit changers. Negative for abdominal pain, nausea or vomiting. GENITOURINARY: Negative for dysuria, hematuria polyuria. NEUROLOGICAL: Positive for Parkinson's dementia but negative for seizures. 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 No reported new neurological findings.. HEMATOLOGICAL: Denies any easy bruising, unexplained bleeding episodes and has no history of clotting disorders. PHYSICAL EXAMINATION: VITAL SIGNS: Temperature 99.3, pulse 53, blood pressure 128/85, respirations 16, saturation 95% on room air. Admission weight 64.15 kg. GENERAL: The patient does appear dehydrated but well-nourished. He appears to be in no apparent distress, he is alert. . HEENT: Tympanic membranes are clear bilaterally. Oropharynx is pink with dry mucous membranes. . NECK: Supple, non-tender, full range of motion, no jugular venous distention. CHEST: Clear to auscultation without any rhonchi, rales, or wheezes. CARDIOVASCULAR: Heart regular rate and rhythm without appreciable murmurs, rubs, or gallops. ABDOMEN: Soft, non-tender, positive bowel sounds. EXTREMITIES: Exam shows some mild edema to his right arm and right leg secondary to chronic lymphedema. Left side showed to be without any edema. . NEUROLOGIC: He is alert, he will converse but is obviously confused but very pleasant. He is slow in his movements. no significant tremors. He has a very flat affect but again, does answer some questions but is not currently oriented to year but understands he is in the hospital. reports that she sees no additional deficits compared from his baseline. SKIN: [place], warm and dry with no lesions or rash except for just 2 small areas on the forehead that are healing from previous falls. LABORATORY: White count 6,000, hemoglobin 11.6, hematocrit 34.6, platelet count 227,000, differential shows currently to be without a left shift. Chemistries show a potassium of 3.5, otherwise, all electrolytes within normal limits. BUN 18, creatinine 1.05. Liver functions all within normal limits. Calcium 8.8, troponin less than 0.02. BNP slightly elevated at 123. Urinalysis shows to be within normal limits. RADIOLOGY: Chest x-ray without any acute findings per radiology interpretation.. CT of the head without contrast per radiology interpretation shows no acute intracranial process. There is note of senescent changes and polysinusitis. ASSESSMENT: 1. Dehydration. 2. History of multiple falls exacerbated by dehydration as noted in #1 with underlying Parkinson's disease. 3. Electrolyte imbalance to include hypokalemia. 4. History of Parkinson's with dementia. 5. Hypertension. 6. Polysinusitis, likely acute on chronic. 7. Cough secondary to polysinusitis and postnasal drip with no other signs of obvious infectious source. PLAN: Mr. Hansen is going to be admitted for IV fliud therapy in attempts to correct the dehydration which possibly could be contributing to some of his weakness. He was started on Augmentin for the underlying sinusitis which will be continued. I have ordered a PT consult and contacted [facility] in efforts to see if the patient would benefit from more comprehensive inpatient rehabilitation program as he is currently in an outpatient program but certainly is not able to participate due to inability to help himself. His has to provide near full assistance for simple task of just going from bed to a chair. To travel back and forth to the local outpatient rehabilitation center posses a significant safety risk for both the patient and his . He certainly is a severe risk for falls given his underlying dementia , Parkinson's, advanced age and weakness. I will review his medications and update and resume as appropriate once the list has have been verified. I will have him on DVT prophylaxis as per protocol. He will be on a regular diet but he does certainly have a high risk potential for aspiration so we will need to watch this very closely. I will order a nursing bedside swallow screen. Will anticipate his length of stay to be 1 to 2 days pending his consultation with [facility] and again, will provide fluids overnight. Until he can transition to outpatient management, we will continue to monitor and treat as needed. #[id number] [facility]
[2018-08-14] MEDS ORDERED: ONDANSETRON INJ 4 MG/2 ML VIAL IV PRN (12:01)
[2018-08-14] MEDS ORDERED: ACETAMINOPHEN 325 MG TAB PO PRN (12:01)
[2018-08-14] MEDS ORDERED: SODIUM CHLORIDE 0.9% (FLUSH) 10 ML SYG IV PRN (12:01)
[2018-08-14] MEDS ORDERED: IV SET AND CAP CHANGE INJ INJ SCH (12:30)
[2018-08-14] MEDS ORDERED: VITAMIN E 1000 UNIT PO SCH (20:00)
[2018-08-14] MEDS ORDERED: DONEPEZIL HCL 5 MG TAB ONE (20:08)
[2018-08-14] MEDS: AMOXICILLIN & POT CLAVULANATE 875 MG TAB PO SCH (20:26)
[2018-08-14] MEDS: LEVODOPA PO SCH (20:44)
[2018-08-14] MEDS: [UNRECOGNIZED DRUG - OTHER] PO SCH (20:44)
[2018-08-14] MEDS: CARBIDOPA PO SCH (20:44)
[2018-08-14] MEDS: ROPINIROLE HYDROCHLORIDE 3 MG PO SCH (20:44)
[2018-08-14] MEDS: NON-FORMULARY MEDICATION 1 EA MIS (Donepezil Hydrochloride [Donepezil Hcl] 10 MG) PO SCH (20:45)
[2018-08-14] MEDS: amLODIPine BESYLATE 5 MG TAB PO SCH (20:45)
[2018-08-14] MEDS ORDERED: hydrOXYzine HCl 10 MG TAB PO SCH (21:00)
[2018-08-15] MEDS: AMOXICILLIN & POT CLAVULANATE 875 MG TAB PO SCH (07:49)
[2018-08-15] MEDS ORDERED: EPLERENONE 50 MG PO SCH ×2 (09:00→12:00)
[2018-08-15] MEDS ORDERED: PHYTONADIONE 100 MCG PO SCH (09:00)
[2018-08-15] MEDS ORDERED: PYRIDOXINE PO SCH (09:00)
[2018-08-15] MEDS ORDERED: NON-FORMULARY MEDICATION 1 EA MIS (Olmesartan Medoxomil [Benicar] 40 MG) PO SCH (09:00)
[2018-08-15] MEDS ORDERED: ZONISAMIDE PO SCH (09:00)
[2018-08-15] MEDS ORDERED: ZINC PO SCH (09:00)
[2018-08-15] MEDS ORDERED: [UNRECOGNIZED DRUG - OTHER] PO SCH (09:00)
[2018-08-15] MEDS ORDERED: METOPROLOL SUCCINATE XL 25 MG TAB PO SCH (09:00)
[2018-08-15] MEDS: [UNRECOGNIZED DRUG - OTHER] PO SCH ×2 (10:54→15:40)
[2018-08-15] MEDS: CARBIDOPA PO SCH ×2 (10:54→15:40)
[2018-08-15] MEDS: LEVODOPA PO SCH ×2 (10:54→15:40)
[2018-08-15] MEDS: NON-FORMULARY MEDICATION 1 EA MIS (Donepezil Hydrochloride [Donepezil Hcl] 10 MG) PO SCH (10:55)
[2018-08-15] MEDS: amLODIPine BESYLATE 5 MG TAB PO SCH (10:56)
[2018-08-15] MEDS: ROPINIROLE HYDROCHLORIDE 3 MG PO SCH ×2 (10:58→15:41)
[2018-08-15 14:01] VITALS: O2SAT 96
[2018-08-15 14:40] VITALS: BP 123/83; TEMP 98.6
--- NOTE | 2018-08-15 18:57 | DS ---
SUPERVISING PHYSICIAN: Ronny Braswell M.D. ADMISSION DIAGNOSIS: 1. Dehydration. 2. History of multiple falls exacerbated by dehydration as noted in #1 with underlying Parkinson's disease. 3. Electrolyte imbalance to include hypokalemia. 4. History of Parkinson's with dementia. 5. Hypertension. 6. Polysinusitis, likely acute on chronic. 7. Cough secondary to polysinusitis and postnasal drip with no other signs of obvious infectious source. DISCHARGE DIAGNOSIS: 1. Dehydration resolved with fluids. 2. History of multiple falls probably exacerbated by dehydration and underlying Parkinson's disease transitioning to an inpatient rehab program at discharge. 3. Electrolyte imbalance to include hypokalemia showing to be stable. 4. History of Parkinson's with dementia. 5. Hypertension, stable. 6. Polysinusitis, likely acute on chronic treated with Augmentin at discharge. 7. Cough secondary to polysinusitis and postnasal drip improving with initiation of antibiotics. 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 His reports that over the last several days he has developed a cough that has been very persistent as well as he has had increasing weakness to the point where yesterday and this morning she was barely able to assist him out of the bed and to the bedside commode. In fact, today she was unable to provide any assistance as he was unable to help her, therefore, she required assistance with EMS. The patient was brought to the Emergency Room for evaluation. Initial laboratory studies showed a mild hypokalemia and a mild elevated BNP. His urinalysis was showing to be within normal limits. Vital signs showed he had a low grade fever at 99.3 but his blood pressure was 120/75, respirations 95. A chest x-ray was completed, single-view, with no acute findings. He did have a CT of the head without contrast and per radiology interpretation showed no acute intracranial process. There was note of polysinusitis. Dr. Denson, Emergency Room physician, is requesting the patient be placed in observation for IV therapy as the patient is showing to be clinically dehydrated which may be contributing to his worsening weakness but only source of possible infection at this point is a sinusitis which she has already started him on Augmentin. Given the patient's advanced age at 73 and underlying history of Parkinson's disease with dementia and the fact that the patient requires a significant amount of assistance at home with any of his activities of daily living and his is unable to provide any assistance at this point, the patient will be placed in observation for further monitoring, IV therapy and continued antibiotic coverage for the sinusitis. LABORATORY STUDIES: CBC on admission showed white count 6,000, hemoglobin 11.6, hematocrit 34.4 with platelet count 227,000. Differential showed to be without a left shift. Chemistries showed just a mildly low potassium at 3.5 with all other electrolytes being normal. BUN 18, creatinine 1.05. Liver functions all showing within normal limits. Troponin less than 0.02. BNP was only slightly elevated at 123. Urinalysis showed to be within normal limits. MICROBIOLOGY: Blood cultures showed negative at 24 hours. Influenza A and B by PCR was negative. RADIOLOGY: He had a chest x-ray in the [facility]. [facility]. prior to admission and per radiology interpretation showed negative exam. He also had a CT of the head without contrast prior to admission and per radiology interpretation showed no acute intracranial process, just senescent changes with polysinusitis. HOSPITAL COURSE: Mr. Eric Hansen was admitted from the E. . and placed in observation from the E. . yesterday for IV therapy with fluids for some mild dehydration that exacerbated his falls from Parkinson's. He was started on IV fluids and for his sinusitis was started on oral Augmentin. A consultation with [facility] in [place], was completed and he was found to be a candidate for ongoing therapy to include both speech, occupational and physical therapy. PLAN: Mr. Hansen is to be discharged to be admitted at [facility] in [place] for ongoing therapy. Again as noted above he was having multiple falls at home and is at high risk for continued falls needing full assistance for just simply moving from a chair to standing position. As soon as it can be arranged, he will be transferred via van for ongoing therapy as noted above. Condition at discharge was stable and improving. DISPOSITION: The patient is discharged to [facility], transported via ground by [facility] employees. #[id number] [facility]
[2018-08-18] MEDS ORDERED: FISH OIL 1,200 MG CAP PO SCH (09:00)
== END 2018-08-15 16:05 ==
LOC: ER 08:26 → MS 11:36 → INTOOBSV 11:36
PROVIDERS: ADMIT Nurse Practitioner Family; ATTEND Nurse Practitioner Family
DX: E86.0 Dehydration (principal); E87.6 Hypokalemia; E87.8 Other disorders of electrolyte and fluid balance, not elsewhere classified; G20 Parkinson's disease; F02.80 Dementia in other diseases classified elsewhere, unspecified severity, without behavioral disturbance, psychotic disturbance, mood disturbance, and anxiety; R29.6 Repeated falls; I10 Essential (primary) hypertension; J01.20 Acute ethmoidal sinusitis, unspecified; J32.2 Chronic ethmoidal sinusitis; J01.10 Acute frontal sinusitis, unspecified; J32.1 Chronic frontal sinusitis; J01.00 Acute maxillary sinusitis, unspecified; J32.0 Chronic maxillary sinusitis; J01.30 Acute sphenoidal sinusitis, unspecified; J32.3 Chronic sphenoidal sinusitis; R05 Cough; Z79.899 Other long term (current) drug therapy; Z91.81 History of falling; Z85.831 Personal history of malignant neoplasm of soft tissue
CPT/HCPCS: 96360; 96361; J7030; 82553; 80053; 36415 ×2; 81001; 85025; 82550; 87040 ×2; 84484; 83880; 71045; 70450; 94760; 97530; G8978; G8979; 97162; 99285; 93005; G0378; 87502

== ENCOUNTER 2018-10-04 18:15 | Emergency (ER) | payer MEDICARE, OTHER ==
--- NOTE | 2018-10-04 19:16 | RAD ---
PROCEDURE: XR Abdomen Series CLINICAL HISTORY: 73 years Male ams, falls with dementia TECHNIQUE: Single frontal radiograph of the chest with two radiographs of the abdomen provided, portable. COMPARISON: The image of the chest is compared with the prior dated 08/14/2018 FINDINGS: The lungs are clear without focal consolidation, pleural effusion, or pneumothorax. Stable cardiomediastinal silhouette without definite congestive failure. Tortuous descending thoracic aorta. Nonspecific bowel gas pattern without evidence of obstruction or free air. No abnormal radiodensities. No acute osseous abnormality. IMPRESSION: No acute findings in the chest or abdomen. Electronically signed by: Suma Mathias MD 10/04/2018 7:14 PM CDT
[2018-10-04] MEDS ORDERED: POTASSIUM CHLORIDE ELIXIR 20 MEQ/15 ML UD PO ONE (19:50)
--- NOTE | 2018-10-04 21:13 | ED.PDOC ---
History of Present Illness - General Chief Complaint: Trauma Stated Complaint: increased falls Time Seen by Provider: 10/04/18 18:23 Source: patient Exam Limitations: no limitations - History of Present Illness Initial Comments: the patient is a 73-year-old male presenting to the emergency room secondary to increasing falls over the last week or 2. The patient does have significant Parkinson's and dementia related to it. The patient went to see his neurologist today. He recommended they come to the emergency room to see if any infection were on board. The patient does have a history of respiratory and urinary tract infections. He has essentially been asymptomatic except for the increasing falls. He was recently started on a diuretic secondary to swelling of lower extremities likely due to decreased movement and the occasions. The patient does not appear to be any acute distress. He does have significant rigidity. Mentation is slowed.no evidence of any significant damage from the falls. Timing/Duration: 1 week Severity: mild Improving Factors: nothing Worsening Factors: nothing Associated Symptoms: denies symptoms Allergies/Adverse Reactions: Allergies NO KNOWN ALLERGY Allergy (Verified 08/14/18 09:00) Home Medications: Ambulatory Orders Eplerenone 50 mg PO DAILY 11/23/14 Olmesartan Medoxomil [Benicar] 40 mg PO DAILY 11/23/14 Benfotiamine 150 mg PO TID 06/17/18 Calcium 600 mg PO BID 06/17/18 Cholecalciferol [Vitamin D3] 5,000 unit PO DAILY 06/17/18 Chromium Picolinate 800 mcg PO DAILY 06/17/18 Cinnamon 1,000 mg PO DAILY 06/17/18 Coenzyme Q10 (Ubidecarenone) [Coq-10] 100 mg PO DAILY 06/17/18 Donepezil Hydrochloride [Donepezil HCl] 10 mg PO BID 06/17/18 Folic Acid,B2,B6,B12 [Cerefolin] 1 ea PO .MON,.Tue06/17/18 Hydroxyzine HCl 10 mg PO BEDTIME 06/17/18 Magnesium Gluconate 500 mg PO DAILY 06/17/18 Memantine HCl [Namenda Xr] 28 mg PO DAILY 06/17/18 [place]-3 Fatty Acids [[place]-3 Fish Oil 500 mg] 1 cap PO .MON,Tue06/17/18 Phytonadione [Vitamin K] 100 mcg PO DAILY 06/17/18 Ropinirole Hydrochloride [Ropinirole HCl] 3 mg PO TID 06/17/18 Vitamin E [Natural Vitamin E] 1,000 unit PO .MON,Tue06/17/18 Zinc W/ Vitamin C & B6 1 tablet PO DAILY 06/17/18 Zonisamide [Zonegran] 75 mg PO DAILY 06/17/18 Carbidopa-Levodopa [Carbidopa/Levodopa 25-100 mg] 1 tab PO QID 08/15/18 Potassium Chloride [Potassium Chloride ER] 10 meq PO DAILY #7 tab 10/04/18 Review of Systems - Review of Systems Constitutional: States: no symptoms reported EENTM: States: no symptoms reported Respiratory: States: no symptoms reported Cardiology: States: no symptoms reported Gastrointestinal/Abdominal: States: no symptoms reported Genitourinary: States: no symptoms reported Musculoskeletal: States: no symptoms reported Skin: States: no symptoms reported Neurological: States: see HPI Endocrine: States: no symptoms reported All other Systems: No Change from Baseline Past Medical History (General) - Patient Medical History Hx Seizures: No Hx Stroke: No Hx Dementia: Yes Hx Asthma: No Hx of COPD: No Hx Cardiac Disorders: No Hx Congestive Heart Failure: No Hx Pacemaker: No Hx Hypertension: Yes Hx Thyroid Disease: No Hx Diabetes: No Hx Gastroesophageal Reflux: No Hx Renal Disease: No Hx Cancer: Yes - sarcoma Hx of HIV: No Hx Hepatitis C: No Hx MRSA: No Surgical History: other - Vaccination History Hx Tetanus, Diphtheria Vaccination: Yes Hx Influenza Vaccination: Yes Hx Pneumococcal Vaccination: Yes - Social History Hx Tobacco Use: No Hx Chewing Tobacco Use: No Hx Alcohol Use: Yes - None recent Hx Substance Use: No Hx Substance Use Treatment: No Hx Depression: No Hx Physical Abuse: No Hx Emotional Abuse: No Hx Suspected Abuse: No - Female History Patient : No Family Medical History - Family History Mother Family History: Unknown Living Status: Unknown Hx Family Cancer: Yes Physical Exam - Physical Exam General Appearance: Alert, No apparent distress Eye Exam: bilateral normal - extraocular movements are intact. Pupils are reactive. Ears, Nose, Throat: normal pharynx, other - the patient understands speech of a normal level. Neck: full range of motion, supple, other - tympanic membranes are clear. Respiratory: lungs clear, normal breath sounds, no respiratory distress, no accessory muscle use Cardiovascular/Chest: normal peripheral pulses, no edema, bradycardia Peripheral Pulses: radial,right: 2+, radial,left: 2+, dorsalis pedis,right: 2+, dorsalis pedis,left: 2+ Gastrointestinal/Abdominal: non tender, soft Rectal Exam: deferred Back Exam: no CVA tenderness, no vertebral tenderness Extremity: non-tender, normal inspection, no pedal edema, normal capillary refill Neurologic: echocardiography tech II-XII nml as tested - chronic hearing decreased bilaterally, alert, normal mood/affect - given his long-term disease, other - significant cogwheel rigidity Skin Exam: normal color Comments: Vital Signs - 24 hr 10/04/18 18:25 Temperature 98.3 F Pulse Rate [ 44 L left brachial] Respiratory 20 Rate Blood Pressure 144/83 [left brachial] O2 Sat by Pulse 99 Oximetry Progress - Progress Progress: 10/04/18 21:15 the patient is a 73-year-old male with increased falling recently. family is concerned there may be some underlying infection. I found no evidence of any infection at this time. The patient does however have some hypokalemia and mild to moderate dehydration which may be contributing. I recommend that the hydrochlorothiazide be held unless he is having significant swelling. Compression stockings may be a better solution for swelling if it recurs than a diuretic. he was given a dose of oral potassium here. He does need to be rechecked in 2 weeks. Hopefully reducing the hydrochlorothiazide dose will allow the potassium to return to normal. I will write him for one week of a oral potassium supplement. He does have some dehydration. Oral liquid intake does need to be encouraged. This will also likely be aided by a reduction of the hydrochlorothiazide. Keep follow-up with primary care doctor and neurology. ER warnings were given. - Results/Orders Results/Orders: chest x-ray is within normal limits. Laboratory Tests 10/04/18 10/04/18 10/04/18 18:50 18:50 18:50 WBC 4.1 L RBC 4.23 L Hgb 13.2 L Hct 38.5 L MCV 91.0 MCH 31.1 H MCHC 34.1 RDW 14.8 H Plt Count 226 MPV 7.1 L Absolute Neuts (auto) 2.40 Absolute Lymphs (auto) 1.00 Absolute Monos (auto) 0.50 Absolute Eos (auto) 0.20 Absolute Basos (auto) 0.00 Neutrophils % 58.8 Lymphocytes % 23.2 Monocytes % 11.7 H Eosinophils % 5.2 H Basophils % 1.1 Sodium 138 Potassium 3.2 L Chloride 102 Carbon Dioxide 25 Anion Gap 14.2 BUN 29 H Creatinine 1.27 BUN/Creatinine Ratio 22.8 H Random Glucose 103 Serum Osmolality 281.8 Lactic Acid 1.3 Calcium 8.9 Magnesium 2.0 Total Bilirubin 0.5 AST 15 ALT 12 Alkaline Phosphatase 60 Creatine Kinase 27 L CK-MB (CK-2) 1.6 CK-MB (CK-2) % 5.93 H Troponin I < 0.02 B-Natriuretic Peptide 59.3 Serum Total Protein 6.6 Albumin 3.7 Globulin 2.9 Albumin/Globulin Ratio 1.3 Urine Color Urine Appearance Urine pH Ur Specific [place] Urine Protein Urine Glucose (UA) Urine Ketones Urine Blood Urine Nitrite Urine Bilirubin Urine Urobilinogen Ur Leukocyte Esterase Urine RBC Urine WBC Ur Epithelial Cells Urine Bacteria 10/04/18 19:47 WBC RBC Hgb Hct MCV MCH MCHC RDW Plt Count MPV Absolute Neuts (auto) Absolute Lymphs (auto) Absolute Monos (auto) Absolute Eos (auto) Absolute Basos (auto) Neutrophils % Lymphocytes % Monocytes % Eosinophils % Basophils % Sodium Potassium Chloride Carbon Dioxide Anion Gap BUN Creatinine BUN/Creatinine Ratio Random Glucose Serum Osmolality Lactic Acid Calcium Magnesium Total Bilirubin AST ALT Alkaline Phosphatase Creatine Kinase CK-MB (CK-2) CK-MB (CK-2) % Troponin I B-Natriuretic Peptide Serum Total Protein Albumin Globulin Albumin/Globulin Ratio Urine Color Yellow Urine Appearance Clear Urine pH 6.0 Ur Specific [place] 1.025 Urine Protein Negative Urine Glucose (UA) Negative Urine Ketones Negative Urine Blood Negative Urine Nitrite Negative Urine Bilirubin Negative Urine Urobilinogen 0.2 Ur Leukocyte Esterase Negative Urine RBC 0 Urine WBC 0 Ur Epithelial Cells 1-3 Urine Bacteria 0 Departure - Departure Clinical Impression: Recurrent falls, Dehydration, Hypokalemia Disposition: Discharge to Home or Self Care Condition: Fair Departure Forms: ED Discharge - Pt. Copy, Patient Portal Self Enrollment Instructions: Hypokalemia (DC), Dehydration, Adult (DC) Diet: regular diet Activity: increase activity as tolerated Referrals: Janeth Galloway MD [Primary Care Provider] - 1-2 Weeks Prescriptions: Potassium Chloride [Potassium Chloride ER] 10 meq PO DAILY #7 tab Home Medications: Ambulatory Orders Eplerenone 50 mg PO DAILY 11/23/14 Olmesartan Medoxomil [Benicar] 40 mg PO DAILY 11/23/14 Benfotiamine 150 mg PO TID 06/17/18 Calcium 600 mg PO BID 06/17/18 Cholecalciferol [Vitamin D3] 5,000 unit PO DAILY 06/17/18 Chromium Picolinate 800 mcg PO DAILY 06/17/18 Cinnamon 1,000 mg PO DAILY 06/17/18 Coenzyme Q10 (Ubidecarenone) [Coq-10] 100 mg PO DAILY 06/17/18 Donepezil Hydrochloride [Donepezil HCl] 10 mg PO BID 06/17/18 Folic Acid,B2,B6,B12 [Cerefolin] 1 ea PO .TUE,.Tue06/17/18 Hydroxyzine HCl 10 mg PO BEDTIME 06/17/18 Magnesium Gluconate 500 mg PO DAILY 06/17/18 Memantine HCl [Namenda Xr] 28 mg PO DAILY 06/17/18 [place]-3 Fatty Acids [[place]-3 Fish Oil 500 mg] 1 cap PO .TUE,Tue06/17/18 Phytonadione [Vitamin K] 100 mcg PO DAILY 06/17/18 Ropinirole Hydrochloride [Ropinirole HCl] 3 mg PO TID 06/17/18 Vitamin E [Natural Vitamin E] 1,000 unit PO .TUE,Tue06/17/18 Zinc W/ Vitamin C & B6 1 tablet PO DAILY 06/17/18 Zonisamide [Zonegran] 75 mg PO DAILY 06/17/18 Carbidopa-Levodopa [Carbidopa/Levodopa 25-100 mg] 1 tab PO QID 08/15/18 Potassium Chloride [Potassium Chloride ER] 10 meq PO DAILY #7 tab 10/04/18 Additional Instructions: the patient is a 73-year-old male with increased falling recently. family is concerned there may be some underlying infection. I found no evidence of any infection at this time. The patient does however have some hypokalemia and mild to moderate dehydration which may be contributing. I recommend that the hydrochlorothiazide be held unless he is having significant swelling. Compression stockings may be a better solution for swelling if it recurs than a diuretic. he was given a dose of oral potassium here. He does need to be rechecked in 2 weeks. Hopefully reducing the hydrochlorothiazide dose will allow the potassium to return to normal. I will write him for one week of a oral potassium supplement. He does have some dehydration. Oral liquid intake does need to be encouraged. This will also likely be aided by a reduction of the hydrochlorothiazide. Keep follow-up with primary care doctor and neurology. ER warnings were given.
[2018-10-04 21:29] VITALS: BP 158/96; TEMP 98.1; O2SAT 98
== END 2018-10-04 21:46 | disposition home or self-care (01) ==
LOC: ER 18:15
DX: E86.0 Dehydration (principal); E87.6 Hypokalemia; R00.1 Bradycardia, unspecified; G20 Parkinson's disease; F02.80 Dementia in other diseases classified elsewhere, unspecified severity, without behavioral disturbance, psychotic disturbance, mood disturbance, and anxiety; I10 Essential (primary) hypertension; Z91.81 History of falling; Z87.440 Personal history of urinary (tract) infections; Z79.899 Other long term (current) drug therapy; Z85.9 Personal history of malignant neoplasm, unspecified

== ENCOUNTER → 2018-11-15 | Outpatient (CLI) | payer MEDICARE, OTHER | LOC: CANPRECLI → YCHH 10:07 | PROVIDERS: ATTEND Family Medicine | DX: E87.6 Hypokalemia (principal) ==

== ENCOUNTER → 2018-11-15 | Outpatient (CLI) | payer MEDICARE, OTHER ==
--- NOTE | 2018-11-16 15:25 | CT ---
EXAM DESCRIPTION: CT right shoulder CLINICAL HISTORY: Mass lesion anterior aspect of the shoulder in the axillary region. 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 TECHNIQUE: Spiral CT with multiplanar reformatted images. This exam was performed according to our departmental dose-optimization program, which includes automated exposure control, adjustment of the mA and/or kV according to patient size and/or use of iterative reconstruction technique. FINDINGS: Cutaneous/subcutaneous mass lesion with approximate measurements 2.7 x 2.5 x 2.6 cm. Low-density lesion. Hounsfield units are not accurate secondary to beam hardening artifact. Fairly well circumscribed although contiguous with the lower anterior deltoid muscle over short segment No adenopathy in the axilla or the chest included in the [id number] Small subsegmental region of bronchiectasis and atelectasis right upper lobe. Visualized right upper lung otherwise clear Mild acromioclavicular osteoarthritis. No advanced glenohumeral arthrosis or focal osteochondral lesion. Rotator cuff tendons appear intact with normal muscle volumes and density IMPRESSION: Mass lesion anterior cutaneous/subcutaneous anterior to the axilla along the anteromedial aspect of the deltoid. 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
== END ==
LOC: CT 13:30
PROVIDERS: ATTEND Surgery Surgical Oncology
DX: E87.6 Hypokalemia (principal); R22.31 Localized swelling, mass and lump, right upper limb; Z85.831 Personal history of malignant neoplasm of soft tissue

== ENCOUNTER 2019-01-14 21:28 | Emergency (ER) | payer MEDICARE, OTHER ==
[2019-01-14 21:44] VITALS: O2SAT 97
[2019-01-14] MEDS ORDERED: cefTRIAXone SODIUM 1 GM VIAL IM ONE (22:02)
--- NOTE | 2019-01-14 22:05 | ED.PDOC ---
History of Present Illness - General Chief Complaint: Fever Stated Complaint: J/P pulled out, fever x's 2 days Time Seen by Provider: 01/14/19 21:30 Source: patient Exam Limitations: no limitations - History of Present Illness Initial Comments: the patient is a 73-year-old male presenting to emergency room secondary to his lower drain coming out tonight on accident. The patient apparently had a sarcoma resection at the end of December. Drains have been in place since that time. The upper drain does still have some significant serosanguineous drainage. The lower drain bulb was actually essentially empty. Examination of the lower drain tract shows no evidence of any continued drainage on the skin. The lower incision appears to be healing well. The upper semici rcular incision seems to have some very localized cellulitis at approximately 4:00. No obvious abscess formation. No dehiscence at this point. Aaron are still in place. The patient is on Bactrim. The patient has apparently been mentating poorly since the surgery. Vital signs appear stable. The patient is appropriately sleepy given the time of night.family is present for some additional information. Timing/Duration: 1-3 hours Severity: mild Improving Factors: nothing Worsening Factors: nothing Allergies/Adverse Reactions: Allergies NO KNOWN ALLERGY Allergy (Verified 08/14/18 09:00) Home Medications: Ambulatory Orders Eplerenone 50 mg PO DAILY 11/23/14 Olmesartan Medoxomil [Benicar] 40 mg PO DAILY 11/23/14 Benfotiamine 150 mg PO TID 06/17/18 Calcium 600 mg PO BID 06/17/18 Cholecalciferol [Vitamin D3] 5,000 unit PO DAILY 06/17/18 Chromium Picolinate 800 mcg PO DAILY 06/17/18 Cinnamon 1,000 mg PO DAILY 06/17/18 Coenzyme Q10 (Ubidecarenone) [Coq-10] 100 mg PO DAILY 06/17/18 Donepezil Hydrochloride [Donepezil HCl] 10 mg PO BID 06/17/18 Folic Acid,B2,B6,B12 [Cerefolin] 1 ea PO .MON,.FRI 06/17/18 Hydroxyzine HCl 10 mg PO BEDTIME 06/17/18 Magnesium Gluconate 500 mg PO DAILY 06/17/18 Memantine HCl [Namenda Xr] 28 mg PO DAILY 06/17/18 [place]-3 Fatty Acids [[place]-3 Fish Oil 500 mg] 1 cap PO .06/17/18 Phytonadione [Vitamin K] 100 mcg PO DAILY 06/17/18 Ropinirole Hydrochloride [Ropinirole HCl] 3 mg PO TID 06/17/18 Vitamin E [Natural Vitamin E] 1,000 unit PO .TUE,Tue06/17/18 Zinc W/ Vitamin C & B6 1 tablet PO DAILY 06/17/18 Zonisamide [Zonegran] 75 mg PO DAILY 06/17/18 Carbidopa-Levodopa [Carbidopa/Levodopa 25-100 mg] 1 tab PO QID 08/15/18 Potassium Chloride [Potassium Chloride ER] 10 meq PO DAILY #7 tab 10/04/18 Review of Systems - Review of Systems Review of Systems: 01/14/19 22:05 patient is an unreliable source for symptoms. Constitutional: States: malaise EENTM: States: no symptoms reported Respiratory: States: no symptoms reported Cardiology: States: no symptoms reported Gastrointestinal/Abdominal: States: no symptoms reported Genitourinary: States: no symptoms reported Musculoskeletal: States: see HPI Skin: States: see HPI Endocrine: States: no symptoms reported All other Systems: No Change from Baseline Past Medical History (General) - Patient Medical History Hx Seizures: No Hx Stroke: No Hx Dementia: Yes Hx Asthma: No Hx of COPD: No Hx Cardiac Disorders: No Hx Congestive Heart Failure: No Hx Pacemaker: No Hx Hypertension: Yes Hx Thyroid Disease: No Hx Diabetes: No Hx Gastroesophageal Reflux: No Hx Renal Disease: No Hx Cancer: Yes - sarcoma Hx of HIV: No Hx Hepatitis C: No Hx MRSA: No - Vaccination History Hx Tetanus, Diphtheria Vaccination: Yes Hx Influenza Vaccination: Yes Hx Pneumococcal Vaccination: Yes - Social History Hx Tobacco Use: No Hx Chewing Tobacco Use: No Hx Alcohol Use: Yes - None recent Hx Substance Use: No Hx Substance Use Treatment: No Hx Depression: No Hx Physical Abuse: No Hx Emotional Abuse: No Hx Suspected Abuse: No - Activities of Daily Living Snf/Assisted Living (if applicable):: [place] - Female History Patient : No Family Medical History - Family History Mother Family History: Unknown Living Status: Unknown Hx Family Cancer: Yes Physical Exam - Physical Exam General Appearance: Other - the patient is tired. He is frail. 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 Skin Exam: normal color - with the exception of bruising around the operative sites and mild cellulitis as described above. Comments: Vital Signs - 24 hr 01/14/19 01/14/19 21:35 22:00 Temperature 98.3 F Pulse Rate [ 73 73 Left Radial] Respiratory 20 20 Rate Blood Pressure 121/89 [Right Arm] O2 Sat by Pulse 97 Oximetry Progress - Progress Progress: 01/14/19 22:07 the patient is a 73-year-old male sent here to the emergency room secondary to his lower drain coming out. The suture was clipped and the drain was removed. There is no significant drainage from the tract. We did go ahead and place a 4 x 4 with sponge tape over the area to see if there is significant drainage by the morning. We did go ahead and redress coverage over the lower incision as well as the upper incision. The upper incision appears to have some localized cellulitis at about 4:00. The patient is already on Bactrim. I'm giving him a shot of Rocephin here tonight. No obvious dehiscence. No clinical evidence of any sepsis. The patient has an appointment with his surgeon tomorrow. Some of the skin irritation may be due to traction from the aaron. The patient needs to keep his appointment with his surgeon tomorrow. The patient will be allowed to go back to his facility for tonight. ER warnings are given for any acute worsening. Follow up with primary care doctor early this coming week otherwise. Departure - Departure Clinical Impression: Cellulitis of drainage site following surgery Disposition: Discharge to SNF Condition: Fair Departure Forms: ED Discharge - Pt. Copy, Patient Portal Self Enrollment Diet: regular diet Activity: increase activity as tolerated Referrals: Janeth Galloway MD [Primary Care Provider] - 1-2 Weeks Home Medications: Ambulatory Orders Eplerenone 50 mg PO DAILY 11/23/14 Olmesartan Medoxomil [Benicar] 40 mg PO DAILY 11/23/14 Benfotiamine 150 mg PO TID 06/17/18 Calcium 600 mg PO BID 06/17/18 Cholecalciferol [Vitamin D3] 5,000 unit PO DAILY 06/17/18 Chromium Picolinate 800 mcg PO DAILY 06/17/18 Cinnamon 1,000 mg PO DAILY 06/17/18 Coenzyme Q10 (Ubidecarenone) [Coq-10] 100 mg PO DAILY 06/17/18 Donepezil Hydrochloride [Donepezil HCl] 10 mg PO BID 06/17/18 Folic Acid,B2,B6,B12 [Cerefolin] 1 ea PO .TUE,.Tue06/17/18 Hydroxyzine HCl 10 mg PO BEDTIME 06/17/18 Magnesium Gluconate 500 mg PO DAILY 06/17/18 Memantine HCl [Namenda Xr] 28 mg PO DAILY 06/17/18 [place]-3 Fatty Acids [[place]-3 Fish Oil 500 mg] 1 cap PO .TUE,Tue06/17/18 Phytonadione [Vitamin K] 100 mcg PO DAILY 06/17/18 Ropinirole Hydrochloride [Ropinirole HCl] 3 mg PO TID 06/17/18 Vitamin E [Natural Vitamin E] 1,000 unit PO .TUE,Tue06/17/18 Zinc W/ Vitamin C & B6 1 tablet PO DAILY 06/17/18 Zonisamide [Zonegran] 75 mg PO DAILY 06/17/18 Carbidopa-Levodopa [Carbidopa/Levodopa 25-100 mg] 1 tab PO QID 08/15/18 Potassium Chloride [Potassium Chloride ER] 10 meq PO DAILY #7 tab 10/04/18 Additional Instructions: the patient is a 73-year-old male sent here to the emergency room secondary to his lower drain coming out. The suture was clipped and the drain was removed. There is no significant drainage from the tract. We did go ahead and place a 4 x 4 with sponge tape over the area to see if there is significant drainage by the morning. We did go ahead and redress coverage over the lower incision as well as the upper incision. The upper incision appears to have some localized cellulitis at about 4:00. The patient is already on Bactrim. I'm giving him a shot of Rocephin here tonight. No obvious dehiscence. No clinical evidence of any sepsis. The patient has an appointment with his surgeon tomorrow, who can decide if additional antibiotics are warranted. Some of the skin irritation may be due to traction from the aaron. The patient needs to keep his appointment with his surgeon tomorrow. The patient will be allowed to go back to his facility for tonight. ER warnings are given for any acute worsening. Follow up with primary care doctor early this coming week otherwise.
[2019-01-14] MEDS ORDERED: LIDOCAINE 1% 2 ML VIAL INJ ONE (22:08)
[2019-01-14 22:21] VITALS: BP 116/82; TEMP 97.7
== END 2019-01-14 22:30 ==
LOC: ER 21:28
DX: T81.49XA Infection following a procedure, other surgical site, initial encounter (principal); L03.90 Cellulitis, unspecified; F03.90 Unspecified dementia, unspecified severity, without behavioral disturbance, psychotic disturbance, mood disturbance, and anxiety; I10 Essential (primary) hypertension; Z85.9 Personal history of malignant neoplasm, unspecified; Z79.899 Other long term (current) drug therapy

== ENCOUNTER 2019-01-20 15:03 | Emergency (ER) | payer MEDICARE, OTHER ==
--- NOTE | 2019-01-20 16:02 | ED.PDOC ---
History of Present Illness - General Chief Complaint: Post Op Problems Time Seen by Provider: 01/20/19 15:54 Source: family - History of Present Illness Initial Comments: the patient was [facility] from the [facility] secondary to concern for fluid collection at the most posterior aspect of the surgical site. No definite fevers. The patient does not appear to be in any distress in fact he is sleeping almost through the whole exam. He does have advanced dementia. The surgical site itself when compared to my evaluation from a few days ago looks much improved. There is very little drainage. Small area of cellulitis anteriorly appears to be resolving. The patient does have a very mild seroma at the most posterior aspect of the lower incision. No evidence of infection. The patient was seen and evaluated with his family present. Timing/Duration: unsure Severity: mild Improving Factors: nothing Worsening Factors: nothing Allergies/Adverse Reactions: Allergies NO KNOWN ALLERGY Allergy (Verified 08/14/18 09:00) Home Medications: Ambulatory Orders Eplerenone 25 mg PO DAILY 11/23/14 Olmesartan Medoxomil [Benicar] 40 mg PO DAILY 11/23/14 Benfotiamine 150 mg PO TID 06/17/18 Calcium 600 mg PO BID 06/17/18 Cholecalciferol [Vitamin D3] 5,000 unit PO DAILY 06/17/18 Chromium Picolinate 800 mcg PO DAILY 06/17/18 Cinnamon 1,000 mg PO DAILY 06/17/18 Coenzyme Q10 (Ubidecarenone) [Coq-10] 100 mg PO DAILY 06/17/18 Donepezil Hydrochloride [Donepezil HCl] 10 mg PO BID 06/17/18 Folic Acid,B2,B6,B12 [Cerefolin] 1 ea PO .MON,.Tue06/17/18 Hydroxyzine HCl 10 mg PO BEDTIME 06/17/18 Magnesium Gluconate 500 mg PO DAILY 06/17/18 Memantine HCl [Namenda Xr] 28 mg PO DAILY 06/17/18 [place]-3 Fatty Acids [[place]-3 Fish Oil 500 mg] 1 cap PO .MON,Tue06/17/18 Phytonadione [Vitamin K] 100 mcg PO DAILY 06/17/18 Ropinirole Hydrochloride [Ropinirole HCl] 3 mg PO TID 06/17/18 Vitamin E [Natural Vitamin E] 1,000 unit PO .MON,Tue06/17/18 Zinc W/ Vitamin C & B6 1 tablet PO DAILY 06/17/18 Zonisamide [Zonegran] 75 mg PO DAILY 06/17/18 Carbidopa-Levodopa [Carbidopa/Levodopa 25-100 mg] 1 tab PO QID 08/15/18 Potassium Chloride [Potassium Chloride ER] 10 meq PO DAILY #7 tab 10/04/18 Review of Systems - Review of Systems Review of Systems: 01/20/19 16:02 review systems is severely limited due to dementia. Past Medical History (General) - Patient Medical History Hx Seizures: No Hx Stroke: No Hx Dementia: Yes Hx Asthma: No Hx of COPD: No Hx Cardiac Disorders: No Hx Congestive Heart Failure: No Hx Pacemaker: No Hx Hypertension: Yes Hx Thyroid Disease: No Hx Diabetes: No Hx Gastroesophageal Reflux: No Hx Renal Disease: No Hx Cancer: Yes - sarcoma Hx of HIV: No Hx Hepatitis C: No Hx MRSA: No - Vaccination History Hx Tetanus, Diphtheria Vaccination: Yes Hx Influenza Vaccination: Yes Hx Pneumococcal Vaccination: Yes - Social History Hx Tobacco Use: No Hx Chewing Tobacco Use: No Hx Alcohol Use: Yes - None recent Hx Substance Use: No Hx Substance Use Treatment: No Hx Depression: No Hx Physical Abuse: No Hx Emotional Abuse: No Hx Suspected Abuse: No - Female History Patient : No Family Medical History - Family History Mother Family History: Unknown Living Status: Unknown Hx Family Cancer: Yes Physical Exam - Physical Exam General Appearance: Frail - no obvious acute distress however, Other - the patient is very sleepy. Eye Exam: bilateral normal Ears, Nose, Throat: normal pharynx Neck: non-tender, supple Respiratory: no respiratory distress, no accessory muscle use Cardiovascular/Chest: normal peripheral pulses, no edema, other - regular rate Peripheral Pulses: radial,right: 2+, radial,left: 2+ Gastrointestinal/Abdominal: non tender, soft Rectal Exam: deferred Back Exam: other - healing surgical sites without evidence of infection. There is a seroma at the most posterior central aspect of the lower incision. No significant drainage. Extremity: non-tender, no calf tenderness, normal capillary refill, swelling - mild edema of the right hand with brace in place. Neurologic: other - the patient is very sleepy. He does have significant dementia. No evidence for any new neurological deficits based on family's description. Skin Exam: other - ultiple bruising from previous surgeries. Area of cellulitis to the anterior chest appears to be healing up. Progress - Progress Progress: 01/20/19 16:04 the patient is a 73-year-old female brought to the emergency room for evaluation of the lower surgical site incision. It does appear to be healing well. The area of concern is actually a seroma at the most dependent part. It is healing as it should at this point. The patient will be allowed to go back to his long-term care facility for his routine care. Family's questions have been answered. No evidence of active infection at this time. Departure - Departure Clinical Impression: Seroma after procedure Disposition: Discharge to SNF Condition: Poor Departure Forms: ED Discharge - Pt. Copy, Patient Portal Self Enrollment Diet: other Activity: increase activity as tolerated Referrals: Janeth Galloway MD [Primary Care Provider] - 1-2 Weeks Home Medications: Ambulatory Orders Eplerenone 25 mg PO DAILY 11/23/14 Olmesartan Medoxomil [Benicar] 40 mg PO DAILY 11/23/14 Benfotiamine 150 mg PO TID 06/17/18 Calcium 600 mg PO BID 06/17/18 Cholecalciferol [Vitamin D3] 5,000 unit PO DAILY 06/17/18 Chromium Picolinate 800 mcg PO DAILY 06/17/18 Cinnamon 1,000 mg PO DAILY 06/17/18 Coenzyme Q10 (Ubidecarenone) [Coq-10] 100 mg PO DAILY 06/17/18 Donepezil Hydrochloride [Donepezil HCl] 10 mg PO BID 06/17/18 Folic Acid,B2,B6,B12 [Cerefolin] 1 ea PO .MON,.Tue06/17/18 Hydroxyzine HCl 10 mg PO BEDTIME 06/17/18 Magnesium Gluconate 500 mg PO DAILY 06/17/18 Memantine HCl [Namenda Xr] 28 mg PO DAILY 06/17/18 [place]-3 Fatty Acids [[place]-3 Fish Oil 500 mg] 1 cap PO .TUE,Tue06/17/18 Phytonadione [Vitamin K] 100 mcg PO DAILY 06/17/18 Ropinirole Hydrochloride [Ropinirole HCl] 3 mg PO TID 06/17/18 Vitamin E [Natural Vitamin E] 1,000 unit PO .TUE,Tue06/17/18 Zinc W/ Vitamin C & B6 1 tablet PO DAILY 06/17/18 Zonisamide [Zonegran] 75 mg PO DAILY 06/17/18 Carbidopa-Levodopa [Carbidopa/Levodopa 25-100 mg] 1 tab PO QID 08/15/18 Potassium Chloride [Potassium Chloride ER] 10 meq PO DAILY #7 tab 10/04/18 Additional Instructions: the patient is a 73-year-old female brought to the emergency room for evaluation of the lower surgical site incision. It does appear to be healing well. The area of concern is actually a seroma at the most dependent part. It is healing as it should at this point. The patient will be allowed to go back to his long-term care facility for his routine care. Family's questions have been answered. No evidence of active infection at this time.
[2019-01-20 20:01] VITALS: O2SAT 97
[2019-01-22 19:59] VITALS: BP 130/91; TEMP 97.9
== END 2019-01-20 16:50 ==
LOC: ER 15:03
DX: L76.34 Postprocedural seroma of skin and subcutaneous tissue following other procedure (principal); F03.90 Unspecified dementia, unspecified severity, without behavioral disturbance, psychotic disturbance, mood disturbance, and anxiety; I10 Essential (primary) hypertension; Y83.9 Surgical procedure, unspecified as the cause of abnormal reaction of the patient, or of later complication, without mention of misadventure at the time of the procedure; Z85.9 Personal history of malignant neoplasm, unspecified; Z79.899 Other long term (current) drug therapy

== ENCOUNTER 2019-01-22 19:30 | Inpatient (IN) | payer MEDICARE, OTHER ==
[2019-01-22] MEDS ORDERED: KCL 40MEQ/NS 1,000 ML IVS ONE (20:35)
--- NOTE | 2019-01-22 21:38 | CT ---
EXAM: CT Head Without Intravenous Contrast CLINICAL HISTORY: The patient is 73 years old and is Male; lehtargic TECHNIQUE: Axial computed tomography images of the head/brain without intravenous contrast. Sagittal and coronal reformatted images were created and reviewed. This CT exam was performed using one or more of the following dose reduction techniques: automated exposure control, adjustment of the mA and/or kV according to patient size, and/or use of iterative reconstruction technique. COMPARISON: August 14, 2018 FINDINGS: Brain: Periventricular and deep white matter hypodensities, most commonly due to nonspecific white matter chronic microvascular ischemia. Mild cerebral atrophy. No hemorrhage. Ventricles: Unremarkable. No ventriculomegaly. Bones/joints: Unremarkable. No acute fracture. Soft tissues: Unremarkable. Vasculature: Vascular calcifications. Sinuses: Unremarkable as visualized. No acute sinusitis. Mastoid air cells: Unremarkable as visualized. No mastoid effusion. IMPRESSION: No acute intracranial findings. Mild cerebral atrophy and nonspecific chronic microvascular ischemic changes. Electronically signed by: Chilo Abarca MD 01/22/2019 9:36 PM CDT
--- NOTE | 2019-01-22 21:43 | RAD ---
EXAM: XR Abdomen 2 Views With XR Chest CLINICAL HISTORY: The patient is 73 years old and is Male; ams, decreased po intake TECHNIQUE: Frontal view of the chest, frontal view of the abdomen/pelvis and upright or decubitus view of the abdomen. COMPARISON: October 04, 2018 FINDINGS: Lungs: Unremarkable. No consolidation. Pleural space: Unremarkable. No pneumothorax. Heart: Unremarkable. No cardiomegaly. Mediastinum: Unremarkable. Gastrointestinal tract: Moderate amount of colonic stool. Nonobstructive bowel gas pattern. Bones/joints: Spine degenerative changes Soft tissues: Surgical aaron project over the right upper quadrant and the right axillary soft tissues. Tubes, lines and devices: Tubing projects over the right upper lateral abdomen and the right lateral chest soft tissues. IMPRESSION: Moderate amount of colonic stool. Nonobstructive bowel gas pattern. No acute lung findings. No focal lung consolidation. Electronically signed by: Chilo Abarca MD 01/22/2019 9:42 PM CDT
--- NOTE | 2019-01-22 22:09 | ED.PDOC ---
History of Present Illness - General Chief Complaint: General Stated Complaint: lethargy, weakness over 4 days Time Seen by Provider: 01/22/19 19:45 Source: patient Exam Limitations: no limitations - History of Present Illness Initial Comments: the patient is a 73-year-old male presenting to the emergency room with his family secondary to decreased responsiveness progressive over the last couple of weeks but much more pronounced in the last 24 hours. Family member reports that he's only been awake about an hour today. Decreased urine output. His oral intake has also been decreasing over the last couple of weeks. No vomiting. No diarrhea. No evidence of significant pain. He did have a mild cellulitis to his right anterior chest operative site a couple of weeks ago however that has resolved. His membranes are dry. He has no edema. The patient will mumble a few words every now and then. He does have some very mild edema to the right hand due to the brace.e does not purposely respond to verbal stimuli. He does withdraw from pain. He is able to protect his airway. Timing/Duration: unsure Severity: severe Improving Factors: nothing Worsening Factors: nothing Allergies/Adverse Reactions: Allergies NO KNOWN ALLERGY Allergy (Verified 08/14/18 09:00) Home Medications: Ambulatory Orders Eplerenone 25 mg PO DAILY 11/23/14 Olmesartan Medoxomil [Benicar] 40 mg PO DAILY 11/23/14 Cholecalciferol [Vitamin D3] 5,000 unit PO DAILY 06/17/18 Hydroxyzine HCl 10 mg PO BEDTIME 06/17/18 Memantine HCl [Namenda Xr] 28 mg PO DAILY 06/17/18 [place]-3 Fatty Acids [[place]-3 Fish Oil 500 mg] 1 cap PO .TUE,Tue06/17/18 Ropinirole Hydrochloride [Ropinirole HCl] 3 mg PO TID 06/17/18 Vitamin E [Natural Vitamin E] 1,000 unit PO .TUE,Tue06/17/18 Zonisamide [Zonegran] 75 mg PO DAILY 06/17/18 Carbidopa-Levodopa [Carbidopa/Levodopa 25-100 mg] 1 tab PO QID 08/15/18 Acetaminophen [Tylenol] 500 mg PO Q6HR PRN 01/22/19 Calcium Carbonate [Chewable Calcium] 500 mg PO DAILY 01/22/19 Review of Systems - Review of Systems Constitutional: States: malaise EENTM: States: no symptoms reported Respiratory: States: no symptoms reported Cardiology: States: no symptoms reported Gastrointestinal/Abdominal: States: see HPI Genitourinary: States: see HPI Musculoskeletal: States: no symptoms reported Skin: States: no symptoms reported Neurological: States: see HPI Endocrine: States: no symptoms reported All other Systems: No Change from Baseline Past Medical History (General) - Patient Medical History Hx Seizures: No Hx Stroke: No Hx Dementia: Yes Hx Asthma: No Hx of COPD: No Hx Cardiac Disorders: No Hx Congestive Heart Failure: No Hx Pacemaker: No Hx Hypertension: Yes Hx Thyroid Disease: No Hx Diabetes: No Hx Gastroesophageal Reflux: No Hx Renal Disease: No Hx Cancer: Yes - sarcoma Hx of HIV: No Hx Hepatitis C: No Hx MRSA: No Surgical History: cancer surgery - Vaccination History Hx Tetanus, Diphtheria Vaccination: Yes Hx Influenza Vaccination: Yes Hx Pneumococcal Vaccination: Yes Immunizations Up to Date: Yes - Social History Hx Tobacco Use: No Hx Chewing Tobacco Use: No Hx Alcohol Use: Yes - None recent Hx Substance Use: No Hx Substance Use Treatment: No Hx Depression: No Hx Physical Abuse: No Hx Emotional Abuse: No Hx Suspected Abuse: No - Activities of Daily Living Assisted/Assisted [facility] (if applicable):: [facility] - Female History Patient : No - Triage Comment ED Triage Comment: states increased lethargy over [facility]. Recent right shoulder "extensive" cancer surgery 3 weeks ago. Family Medical History - Family History Mother Family History: Unknown Living Status: Unknown Hx Family Cancer: Yes Physical Exam - Physical Exam General Appearance: Frail, Lethargic, Ill Appearing Ears, Nose, Throat: normal pharynx - dry mucous membranes Neck: non-tender Respiratory: normal breath sounds, no respiratory distress, no accessory muscle use Cardiovascular/Chest: normal peripheral pulses, regular rate, rhythm, no edema Peripheral Pulses: radial,right: 2+, radial,left: 2+, dorsalis pedis,right: 2+, dorsalis pedis,left: 2+ Gastrointestinal/Abdominal: non tender, soft Rectal Exam: deferred Back Exam: other - operative site to the right chest and right back appear to be healing well. Wh[place] are still in place. Extremity: normal range of motion - passive, no pedal edema, no calf tenderness, other - right hand edema which is chronic. Neurologic: other - see history of present illness Skin Exam: pallor Comments: Vital Signs - 8 hr 01/22/19 01/22/19 01/22/19 19:39 19:44 20:30 Temperature 98.4 F Pulse Rate [ 82 Left] Respiratory 16 16 Rate Blood Pressure 85/59 76/56 [Left Arm] O2 Sat by Pulse 96 97 Oximetry 01/22/19 01/22/19 21:00 22:00 Temperature Pulse Rate [ 68 60 Left] Respiratory 16 Rate Blood Pressure 103/75 81/63 [Left Arm] O2 Sat by Pulse 94 L 98 Oximetry Progress - Progress Progress: 01/22/19 22:12 the patient is a 73-year-old male presenting secondary to progressive lethargy. The patient does definitely have significant dehydration contributing to his current state. He received a liter bolus and is receiving IV fluids at 200/h with additional potassium. Blood pressures are still remaining low however I do suspect that they are essentially always low with this patient at least for the last few months. The patient does have numerous medications that can increase his sedation as well as lower his blood pressures. These do need to be held for the next day or so. We have still yet to collect a urinalysis as the patient is significantly dehydrated. This will need to be done to make sure there is no infection. The dehydration is likely due to his mental status. It has yet to be determined whether his mental status is significantly being depressed by the medication effects or whether this is simply a progression of his Parkinson's. Hopefully we will be able to determine that over the next 24- 72 hours. Overall six-month prognosis on this patient is poor regardless. - Results/Orders Results/Orders: acute abdominal series shows moderate constipation. No obstruction. No obvious pulmonary infiltrate. CT scan of the head shows chronic processes only. No acute pathology. Laboratory Tests 01/22/19 01/22/19 01/22/19 17:15 17:15 17:15 WBC 4.7 L RBC 3.70 L Hgb 11.7 L Hct 34.7 L MCV 93.8 MCH 31.6 H MCHC 33.7 RDW 17.1 H Plt Count 250 MPV 7.9 Absolute Neuts (auto) 2.90 Absolute Lymphs (auto) 1.10 Absolute Monos (auto) 0.40 Absolute Eos (auto) 0.20 Absolute Basos (auto) 0.10 Neutrophils % 61.8 Lymphocytes % 23.9 Monocytes % 8.9 Eosinophils % 4.2 Basophils % 1.2 PT 12.0 H INR 1.20 H PTT (SP) 24.6 Sodium 149 H Potassium 3.2 L Chloride 119 H* Carbon Dioxide 20 L Anion Gap 13.2 BUN 57 H Creatinine 1.49 H BUN/Creatinine Ratio 38.3 H Random Glucose 128 H Serum Osmolality 313.6 H Lactic Acid Calcium 8.8 Magnesium 2.6 H Total Bilirubin 0.6 AST 13 ALT < 8 L Alkaline Phosphatase 73 Creatine Kinase 20 L CK-MB (CK-2) 1.2 CK-MB (CK-2) % Not Reportable Troponin I 0.02 B-Natriuretic Peptide 17.9 Serum Total Protein 6.3 L Albumin 3.4 Globulin 2.9 Albumin/Globulin Ratio 1.2 Amylase 36 Lipase 38 TSH 1.61 01/22/19 20:10 WBC RBC Hgb Hct MCV MCH MCHC RDW Plt Count MPV Absolute Neuts (auto) Absolute Lymphs (auto) Absolute Monos (auto) Absolute Eos (auto) Absolute Basos (auto) Neutrophils % Lymphocytes % Monocytes % Eosinophils % Basophils % PT INR PTT (SP) Sodium Potassium Chloride Carbon Dioxide Anion Gap BUN Creatinine BUN/Creatinine Ratio Random Glucose Serum Osmolality Lactic Acid 0.8 Calcium Magnesium Total Bilirubin AST ALT Alkaline Phosphatase Creatine Kinase CK-MB (CK-2) CK-MB (CK-2) % Troponin I B-Natriuretic Peptide Serum Total Protein Albumin Globulin Albumin/Globulin Ratio Amylase Lipase TSH Departure - Departure Clinical Impression: Severe dehydration, Hypokalemia Altered mental status Qualifiers: Altered mental status type: stupor Qualified Code(s): R40.1 - Stupor Acute renal failure Qualifiers: Acute renal failure type: unspecified Qualified Code(s): N17.9 - Acute kidney failure, unspecified Disposition: Admit Patient Condition: Serious Departure Forms: ED Discharge - Pt. Copy, Patient Portal Self Enrollment Referrals: Janeth Galloway MD [Primary Care Provider] - 1-2 Weeks Home Medications: Ambulatory Orders Eplerenone 25 mg PO DAILY 11/23/14 Olmesartan Medoxomil [Benicar] 40 mg PO DAILY 11/23/14 Cholecalciferol [Vitamin D3] 5,000 unit PO DAILY 06/17/18 Hydroxyzine HCl 10 mg PO BEDTIME 06/17/18 Memantine HCl [Namenda Xr] 28 mg PO DAILY 06/17/18 [place]-3 Fatty Acids [[place]-3 Fish Oil 500 mg] 1 cap PO .06/17/18 Ropinirole Hydrochloride [Ropinirole HCl] 3 mg PO TID 06/17/18 Vitamin E [Natural Vitamin E] 1,000 unit PO .TUE,Tue06/17/18 Zonisamide [Zonegran] 75 mg PO DAILY 06/17/18 Carbidopa-Levodopa [Carbidopa/Levodopa 25-100 mg] 1 tab PO QID 08/15/18 Acetaminophen [Tylenol] 500 mg PO Q6HR PRN 01/22/19 Calcium Carbonate [Chewable Calcium] 500 mg PO DAILY 01/22/19 Decision To Admit - Decistion To Admit Decision to Admit Reason: Medical Nature Decision to Admit Date: 01/22/19 Decision to Admit Time: 22:16
--- NOTE | 2019-01-22 22:46 | HP ---
SUPERVISING PHYSICIAN: Ronny Braswell MD CHIEF COMPLAINT: Progressively worsening mental status with extreme weakness and lethargy. HISTORY OF PRESENT ILLNESS: This is a 73-year-old male patient who presented to the Emergency Room with his family secondary to decreased responsiveness. He has had altered mental status that has progressed over the last several weeks, but has been much more pronounced in the last 24 to 48 hours. He does have significant history of Parkinson's as well as dementia. He does live at the half-way. He has only been awake for approximately one hour during the day. He has had very minimal oral intake as well as urine output. They have continued to give him his medications including his Parkinson's medicine and his antihypertensives. On admission to the Emergency Room, his blood pressure was 85/59. Shortly thereafter, it was 76/56. Temperature 98, heart rate 82, respiratory rate 16, O2 saturation 96%. He was give some fluids and lab was done. His WBCs were 4.7 with hemoglobin 11.7, hematocrit 34.7. Sodium 149, potassium 3.2, chloride 119, carbon dioxide 20, BUN 57, creatinine 0.49. Serum osmolality was 313.6, lactic acid 0.8, magnesium 2.6. His head CT showed no acute intracranial findings, mild cerebral atrophy and nonspecific chronic microvascular ischemic changes. His abdominal x-ray shows moderate amount of colonic stool, nonobstructive bowel gas pattern, no acute lung findings, no focal lung consolidation. He was given IV fluids in the Emergency Room and I was called for hospital admission. PAST MEDICAL HISTORY: 1. Parkinson's disease. 2. Hypertension. 3. Diabetes mellitus, type 2. 4. Dementia. PAST SURGICAL HISTORY: 1. 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 2. Recent chest wall surgery due to some cellulitis that has resolved. MEDICATIONS: 1. Acetaminophen. 2. Calcium carbonate. 3. Carbidopa/Levodopa. 4. Vitamin D3. 5. Eplerenone. 6. Hydroxyzine. 7. Magnesium oxide. 8. Memantine. 9. Olmesartan. 10. [place] 3 fatty acids. 11. Ropinirole. 12. Vitamin E. 13. Zonegran. ALLERGIES: NO KNOWN DRUG ALLERGIES. SOCIAL HISTORY: He lives at [facility]. He is . He has no history of tobacco or illicit drug use. Previously, he drank wine socially, but has not drank wine since being admitted to the half-way. REVIEW OF SYSTEMS: Unable to obtain due to the patient's lethargy. PHYSICAL EXAMINATION: VITAL SIGNS: Temperature 97.7. Heart rate 63. Blood pressure 129/89. Respiratory rate 18. O2 saturation 99% on room air. GENERAL: This is a 73-year-old male patient who is lying in his hospital bed. He is in no acute distress. HEENT: Normocephalic, atraumatic. Pupils are equal and reactive. Oropharynx is clear. He has dry oral mucous membranes. NECK: Supple without mass. RESPIRATORY: Essentially clear to auscultation bilaterally. CHEST: There is equal rise and fall of the chest with inspiration and expiration. CARDIOVASCULAR: Regular rate and rhythm. GASTROINTESTINAL: Abdomen is soft, nondistended, nontender. Bowel sounds are positive. SKIN: He does have an operative site to the right chest and right back. They appear to be healing well. Reynal[place] are still in place. EXTREMITIES: No cyanosis, clubbing or edema. NEUROLOGIC: He is lethargic. He is nonverbal. LABORATORY: Labs are as per history of present illness plus his urinalysis is unremarkable. All other labs and films have been reviewed via the EMR. IMPRESSION: 1. Altered mental status that has progressively worsened over the last 2 days. 2. Acute on chronic renal failure with a creatinine of 1.49. His baseline creatinine is 1. 3. Dehydration secondary to poor oral intake and decreasing mental status with hypernatremia, hyperchloremia, hypermagnesemia. 4. Hypotension, most likely due to the dehydration and poor oral intake. His blood pressure on admission was 76/56. He received fluids and it came up to 88/66 and stabilized to 103/75. 5. Endstage Parkinson's disease. 6. Mild hypokalemia. 7. Mild anemia. 8. Constipation. 9. Dementia. 10. Hypertension by history on antihypertensives. PLAN: I admitted the patient to the hospital. We will do q.4h. neuro checks. I will give him judicious fluids. I will hold his home medications. Hopefully he will awaken and return to his baseline mental status. I have consulted [employer] and it is recommended that his code status be discussed as he may have endstage Parkinson's disease and has a poor prognosis. I have placed a Wilkerson catheter and hopefully we can do bladder training in the next 24 to 48 hours for removal. He is on a proton pump inhibitor for ulcer prophylaxis as well as Lovenox for DVT prophylaxis. I will rehydrate him for now prior to assisting with constipation. We may need to give him an enema tomorrow or some laxatives once he starts taking oral intake. I have rechecks his labs for in the morning. We will continue to monitor the patient closely and follow as needed. #[id number] [facility]
[2019-01-22] MEDS ORDERED: KCL 20MEQ/D5W 1,000 ML IVS ONE (23:50)
[2019-01-22] MEDS ORDERED: SODIUM CHLORIDE 0.9% (FLUSH) 10 ML SYG IV PRN (23:50)
[2019-01-22] MEDS ORDERED: ONDANSETRON INJ 4 MG/2 ML VIAL IV PRN (23:50)
[2019-01-23] MEDS: IV SET AND CAP CHANGE INJ INJ SCH (01:00)
[2019-01-23] MEDS: PANTOPRAZOLE SODIUM IV 40 MG VIAL IV SCH (06:25)
[2019-01-23] MEDS ORDERED: GABAPENTIN 100 MG CAP PO ONE (12:18)
[2019-01-23] MEDS ORDERED: MAGNESIUM HYDROXIDE 30 ML UD PO ONE (14:55)
--- NOTE | 2019-01-23 15:14 | PN ---
SUPERVISING PHYSICIAN: Ronny Braswell MD DATE: 01/23/19 SUBJECTIVE: The patient is lying in bed. He opens his eyes. He mumbles when he is asked a question. His is at the bedside. She said he is becoming more alert and ate a little bit of his food this morning. She feels like he is improving mentally. OBJECTIVE: VITAL SIGNS: Temperature 98. Heart rate 65. Blood pressure 140/89. Respiratory rate 18. O2 saturation 94% on room air. RESPIRATORY: Essentially clear to auscultation bilaterally. CARDIAC: Regular rate and rhythm. GASTROINTESTINAL: Abdomen is soft, nondistended, nontender. Bowel sounds are positive. SKIN: He has incisions to his right upper shoulder both posterior and anterior. Every other staple has been removed. There are several places that have a small amount of serous drainage, but very minimal. NEUROLOGIC: He is awake, he opens his eyes. He is more alert than he was last night. LABORATORY: WBCs 3.8, hemoglobin 11, hematocrit 33.2. Sodium 148, potassium 3.4, chloride 120, carbon dioxide 21, anion gap 10.4, BUN 50, creatinine improved slightly to 1.27. Glucose 132, serum osmolality 309.5, calcium 8.3, magnesium 2.5, serum total protein 5.8. All other labs and films have been reviewed via the EMR. ASSESSMENT: 1. Altered mental status that has progressively worsened over the last 2 days. His mental status has improved very slightly. 2. Acute on chronic renal failure. His baseline creatinine is 1. He improved to 1.27 today. 3. Dehydration secondary to poor oral intake and decreasing mental status with hypernatremia, hyperchloremia, hypermagnesemia. 4. Hypotension, most likely due to the dehydration and poor oral intake. It has improved. 5. Endstage Parkinson's disease. 6. Mild hypokalemia. 7. Mild anemia. 8. Constipation. 9. Dementia. 10. Hypertension by history on antihypertensives. PLAN: We will continue present supportive care including neuro checks. I will continue with his D5W and recheck his labs in the morning. His routine outpatient medications are held and if his mental status continues to improve, we may need to start those. I am not sure that his blood pressure medicines should be restarted at the previous dosage, nor do I think his Parkinson's medicines should be restarted at the previous dosage with his kidney function and his mental status as well as his oral intake. All those may need to be decreased. He does have an appointment with his neurologist, Dr. Sahil Morrison, in [place] on February 15. It may be beneficial to speak with Dr. Anibal Sun, the patient's primary care physician, for suggestions on his dosages. I will give him an enema tonight if his oral intake does not improve. Otherwise, I will give him a laxative. We will continue to monitor the patient closely and follow as needed. [facility][id number] [facility]
[2019-01-23] MEDS: ENOXAPARIN SODIUM 40 MG/0.4 ML SYG SUBCU SCH (20:54)
[2019-01-24] MEDS: PANTOPRAZOLE SODIUM IV 40 MG VIAL IV SCH (06:11)
[2019-01-24] MEDS ORDERED: EPLERENONE 25 MG PO SCH (10:45)
[2019-01-24] MEDS ORDERED: LOSARTAN POTASSIUM 100 MG TAB PO SCH (10:45)
[2019-01-24] MEDS: DEXTROSE 5% 1000ML 1,000 ML IVS PRN ×2 (11:36→23:03)
[2019-01-24] MEDS ORDERED: BISACODYL SUPPOSITORY 10 MG PR ONE (12:05)
[2019-01-24] MEDS: CARBIDOPA/LEVODOPA 25/100 1 TAB PO SCH ×3 (12:44→20:39)
[2019-01-24] MEDS: ZONISAMIDE 25 MG CAP PO SCH (12:48)
[2019-01-24] MEDS: (Memantine Hcl [Namenda Xr] 28 MG) PO SCH (15:00)
--- NOTE | 2019-01-24 19:55 | PN ---
DATE: 01/24/19 SUPERVISING PHYSICIAN: Ronyn Braswell M.D. SUBJECTIVE: The patient still does not have the best oral intake. His labs still do indicate he is still severely dehydrated. I have encouraged his to help him drink some free water and we discussed plan of care, including continue with IV fluids. He has not had a bowel movement since he has been in the hospital. Will continue to work on this. OBJECTIVE: VITAL SIGNS: Temperature 97.3, pulse 65, blood pressure 127/85, respirations 18, satting 99% on room air. I's and O's show a negative balance of 920 with a weight of 61.3 kg. GENERAL: The patient is in no acute distress. CHEST: Lungs were clear to auscultation bilaterally. HEART: Regular rate and rhythm. ABDOMEN: Soft, nondistended with active bowel sounds. SKIN: Again noted the incision to his right upper shoulder both posterior and anterior with extension of the suture line to the posterior portion of his right chest wall. There is some obvious fluid overlying all of the suture lines but no signs of infection. There is a drain in place that looks like it extended to the right axillary area with just minimal serosanguinous-looking fluid. EXTREMITIES: Without any clubbing, cyanosis or edema. NEUROLOGIC: He is awake and alert. LABORATORY: White count 3,600, hemoglobin and hematocrit are showing to be stable at 11 and 32.7 respectively with platelet count 214,000. Differential shows to be without a left shift. Chemistries still show an elevated sodium at 148 and chloride 119, potassium 3.4, anion gap 20. Osmolality is showing to be 303. Magnesium and calcium levels are showing to within normal limits. RADIOLOGY: No additional radiographic studies. ASSESSMENT: 1. Altered mental status that has progressively worsened over the last 2 days. His mental status has improved very slightly with mental status showing slow improvement requiring ongoing fluids. 2. Acute on chronic renal failure likely from prerenal azotemia exacerbation and underlying dehydration. 3. Dehydration secondary to poor oral intake and decreasing mental status with hypernatremia, hyperchloremia, hypermagnesemia. 4. Hypotension, most likely due to the dehydration and poor oral intake. It has improved. 5. Endstage Parkinson's disease. 6. Mild hypokalemia. 7. Mild anemia. 8. Constipation. 9. Dementia. 10. Hypertension by history on antihypertensives. PLAN: Will go ahead and continue with some IV fluids with D5W to replaced and free water. Will encourage oral intake as well. Will keep his rate on the fluids at 80 an hour for slow rehydration and plan to recheck those later today at some point around 2100. Will go ahead and continue to work on his constipation issues. Will plan to repeat labs in the morning. I did discuss with the family and will try to trace down the facts about getting the J-P drain out hopefully in the near 24 to 48 hours. Again, until we can transition to outpatient management will continue to monitor and treat as needed. [facility][id number] [facility]
[2019-01-24] MEDS: ENOXAPARIN SODIUM 40 MG/0.4 ML SYG SUBCU SCH (20:26)
[2019-01-24] MEDS: hydrOXYzine HCl 10 MG TAB PO SCH (20:39)
[2019-01-25] MEDS: PANTOPRAZOLE SODIUM IV 40 MG VIAL IV SCH (06:09)
[2019-01-25] MEDS: (Memantine Hcl [Namenda Xr] 28 MG) PO SCH (08:03)
[2019-01-25] MEDS: ZONISAMIDE 25 MG CAP PO SCH (08:03)
[2019-01-25] MEDS: CARBIDOPA/LEVODOPA 25/100 1 TAB PO SCH ×3 (08:03→20:56)
[2019-01-25] MEDS: BENICAR 40 MG PO SCH (08:04)
--- NOTE | 2019-01-25 09:31 | RAD ---
EXAM DESCRIPTION: Wrist,Right 3 Views CLINICAL HISTORY: 73 years, Male, follow up fx. Pain. COMPARISON: 12/20/2018. Technique: Frontal lateral and oblique views of the right wrist was obtained. FINDINGS: Motion artifact grades image quality. Images of the right wrist demonstrate no displaced fracture or dislocation. The alignment of the carpus is intact. Moderate osteoarthrosis with joint space narrowing, subchondral sclerosis and small marginal osteophyte formation affects the thumb CMC and to a lesser extent the radial carpal joints. The soft tissues are unremarkable. IMPRESSION: 1. No displaced fracture or dislocation of the right wrist. 2. Moderate thumb CMC osteoarthrosis. Electronically signed by: Jose Manuel Singer DO 01/25/2019 9:30 AM CDT
[2019-01-25] MEDS: DEXTROSE 5% 1000ML 1,000 ML IVS PRN (11:56)
[2019-01-25] MEDS ORDERED: PANTOPRAZOLE SODIUM TAB 40 MG PO ONE (19:13)
[2019-01-25] MEDS: KCL 20MEQ/D5W 1,000 ML IVS PRN (19:21)
--- NOTE | 2019-01-25 20:08 | PN ---
DATE: 01/25/19 SUPERVISING PHYSICIAN: Ronny Braswell M.D. SUBJECTIVE: The patient seems to be doing better today. I discussed with his he is eating breakfast and lunch but does not seem to be wanting too much in the afternoons. We discussed getting him up to his bedside chair. He has had no fevers. He has not yet had a bowel movement but has not had any complaints of abdominal pains. OBJECTIVE: VITAL SIGNS: Temperature 97.4, pulse 74, blood pressure 124/66, respirations 20, satting 96% on room air. I's and O's show a positive balance. Weight is 61.7 kg which is stable. GENERAL: The patient is alert. Appears to be comfortably in no acute distress. CHEST: Lungs are clear to auscultation. HEART: Regular rate and rhythm. ABDOMEN: Soft, non-tender. Positive bowel sounds. EXTREMITIES: Without any edema. NEUROLOGIC: He is alert and oriented but not very verbal at times. says he is at his baseline level. LABORATORY: Chemistries show sodium is down to 141, chloride has come down to 113, potassium is low at 2.8 with glucose 125, creatinine 28, calcium 8.2. ASSESSMENT: 1. Altered mental status that has progressively worsened over the last 2 days. His mental status has improved very slightly with mental status showing slow improvement requiring ongoing fluids. 2. Acute on chronic renal failure likely from prerenal azotemia exacerbation and underlying dehydration. 3. Dehydration contributing to the mental status change with hypernatremia and hypomagnesemia improving with fluids. 4. Electrolyte imbalance to include hypokalemia. 5. Hypotension but now normotensive after fluids. 6. Endstage Parkinson's disease. 7. Mild anemia. 8. Constipation. 9. Dementia. 10. Hypertension by history on antihypertensives. PLAN: Discussed with his today that if he continues to improve will hopefully be able to return him back to care facility. She is wanting to try to see if maybe he is a candidate once again for rehabilitation through [facility]. I have requested a consultation for that which should happen tomorrow. Will replace his potassium as needed. Will continue with current IV fluids with added potassium. Will continue to monitor his J-P drain and hopefully be able to transition back to outpatient management in the next 24 to 48 hours. Until then will continue to monitor and treat as needed. #[id number] [facility]
[2019-01-25] MEDS: ENOXAPARIN SODIUM 40 MG/0.4 ML SYG SUBCU SCH (20:56)
[2019-01-25] MEDS: hydrOXYzine HCl 10 MG TAB PO SCH (20:56)
[2019-01-26] MEDS: IV SET AND CAP CHANGE INJ INJ SCH (01:35)
[2019-01-26] MEDS: PANTOPRAZOLE SODIUM TAB 40 MG PO SCH (06:05)
[2019-01-26] MEDS: KCL 20MEQ/D5W 1,000 ML IVS PRN ×2 (07:34→20:45)
[2019-01-26] MEDS: BENICAR 40 MG PO SCH (08:39)
[2019-01-26] MEDS: (Memantine Hcl [Namenda Xr] 28 MG) PO SCH (08:40)
[2019-01-26] MEDS: ZONISAMIDE 25 MG CAP PO SCH (08:42)
[2019-01-26] MEDS: CARBIDOPA/LEVODOPA 25/100 1 TAB PO SCH ×3 (08:44→20:42)
--- NOTE | 2019-01-26 20:32 | PN ---
DATE: 01/26/19 SUPERVISING PHYSICIAN: Ronny Braswell M.D. SUBJECTIVE: The patient continues to do well. We removed his drain and sutures. He has been afebrile. He still does not have much of an appetite. He has been evaluated by [facility] and is awaiting placement there. OBJECTIVE: VITAL SIGNS: Temperature 98.5, pulse 60, blood pressure 109/76, respirations 16, satting 97% on room air. I's and O's are showing a positive balance of 1227. Weight is 62.6 kg. CHEST: Lungs were clear to auscultation. HEART: Regular rate and rhythm. ABDOMEN: Soft, non-tender. Positive bowel sounds. EXTREMITIES: Without any edema. NEUROLOGIC: He is alert and oriented times three. LABORATORY: Sodium now is back to baseline levels at 135 with chloride 107. Potassium is up to 3.2, BUN 0.79. ASSESSMENT: 1. Altered mental status back to baseline level after IV fluids secondary to hyponatremia and dehydration with the patient now euvolemic. 2. Acute on chronic renal failure with prerenal azotemia secondary to underlying dehydration resolved with fluids. 3. Dehydration resulting in mental status change with hypernatremia and hypomagnesemia now with levels normalized. 4. Electrolyte imbalance to include hypokalemia, persistent but showing to be improving. 5. Hypotension but now normotensive with fluids. 6. Endstage Parkinson's disease. 7. Mild anemia. 8. Constipation. 9. Dementia. 10. Hypertension by history on antihypertensives. PLAN: Will go ahead and saline lock the patient today once we are assured he is taking adequate oral intake. He has been evaluated by [facility]. We are just waiting on placement which hopefully will happen tomorrow. We have removed his J-P drain as well as the remaining aaron. No complications were noted. Will continue to monitor closely until he can be transferred to outpatient management. Until then will follow and treat as needed. #[id number] [facility]
[2019-01-26] MEDS: hydrOXYzine HCl 10 MG TAB PO SCH (20:42)
[2019-01-26] MEDS: ENOXAPARIN SODIUM 40 MG/0.4 ML SYG SUBCU SCH (20:42)
[2019-01-27] MEDS: PANTOPRAZOLE SODIUM TAB 40 MG PO SCH (06:12)
[2019-01-27] MEDS: ZONISAMIDE 25 MG CAP PO SCH (09:02)
[2019-01-27] MEDS: BENICAR 40 MG PO SCH (09:03)
[2019-01-27] MEDS: (Memantine Hcl [Namenda Xr] 28 MG) PO SCH (09:03)
[2019-01-27] MEDS: CARBIDOPA/LEVODOPA 25/100 1 TAB PO SCH ×2 (09:03→15:04)
[2019-01-27] MEDS: KCL 20MEQ/D5W 1,000 ML IVS PRN (12:18)
[2019-01-27 12:38] VITALS: BP 139/78; TEMP 98.5; O2SAT 95
--- NOTE | 2019-02-06 12:02 | DS ---
SUPERVISING PHYSICIAN: Ronny Braswell MD ADMISSION DIAGNOSIS: 1. Altered mental status that has progressively worsened over the last 2 days. 2. Acute on chronic renal failure with a creatinine of 1.49. His baseline creatinine is 1. 3. Dehydration secondary to poor oral intake and decreasing mental status with hypernatremia, hyperchloremia, hypermagnesemia. 4. Hypotension, most likely due to the dehydration and poor oral intake. His blood pressure on admission was 76/56. He received fluids and it came up to 88/66 and stabilized to 103/75. 5. Endstage Parkinson's disease. 6. Mild hypokalemia. 7. Mild anemia. 8. Constipation. 9. Dementia. 10. Hypertension by history on antihypertensives. DISCHARGE DIAGNOSIS: 1. Altered mental status back to baseline level after IV fluids secondary to hyponatremia and dehydration with the patient now euvolemic. 2. Acute on chronic renal failure with prerenal azotemia secondary to underlying dehydration resolved with fluids. 3. Dehydration resulting in mental status change with hypernatremia and hypomagnesemia now with levels normalized. 4. Electrolyte imbalance to include hypokalemia, persistent but showing to be improving. 5. Hypotension but now normotensive with fluids. 6. Endstage Parkinson's disease. 7. Mild anemia. 8. Constipation. 9. Dementia. 10. Hypertension by history on antihypertensives. REASON FOR HOSPITALIZATION: This is a 73-year-old male patient who presented to the Emergency Room with his family secondary to decreased responsiveness. He has had altered mental status that has progressed over the last several weeks, but has been much more pronounced in the last 24 to 48 hours. He does have significant history of Parkinson's as well as dementia. [facility] He has only been awake for approximately one hour during the day. He has had very minimal oral intake as well as urine output. They have continued to give him his medications including his Parkinson's medicine and his antihypertensives. On admission to the Emergency Room, his blood pressure was 85/59. Shortly thereafter, it was 76/56. Temperature 98, heart rate 82, respiratory rate 16, O2 saturation 96%. He was give some fluids and lab was done. His WBCs were 4.7 with hemoglobin 11.7, hematocrit 34.7. Sodium 149, potassium 3.2, chloride 119, carbon dioxide 20, BUN 57, creatinine 0.49. Serum osmolality was 313.6, lactic acid 0.8, magnesium 2.6. His head CT showed no acute intracranial findings, mild cerebral atrophy and nonspecific chronic microvascular ischemic changes. His abdominal x-ray shows moderate amount of colonic stool, nonobstructive bowel gas pattern, no acute lung findings, no focal lung consolidation. He was given IV fluids in the Emergency Room and I was called for hospital admission. LABORATORY: Initial white count on admission was 4,700. Discharge was 3,600. Hemoglobin and hematocrit were stable at 11.0 and 32.7 respectively. On discharge, platelet count was 242,000. Differential was without a left shift on admission and at discharge. PT was 12.0, PTT 24.6. Chemistries initially on admission showed sodium 149, chloride 119, potassium 3.2, BUN elevated at 47 with creatinine 1.49, carbon dioxide low at 20, anion gap normal at 13, serum osmolality 313, lactic acid 0.8, magnesium 2.6. With fluids and prior to discharge, magnesium normalized to 2.4. Liver functions all within normal limits. TSH normal at 1.61. After fluid replacement and prior to discharge, electrolytes normalized with sodium 135, potassium 3.2 which was stable, CO2 slightly low at 19, anion gap normal at 12, BUN and creatinine had normalized with creatinine 0.79. Urinalysis was within normal limits on admission. RADIOLOGY: Abdominal x-ray in the Emergency Room prior to admission per radiologic interpretation showed moderate amount of colonic stool, nonobstructive bowel gas patter with no acute lung findings. No focal lung consolidations. This was followed with CT of the head and per radiologic interpretation showed no acute intracranial findings. There was note of mild cerebral atrophy and nonspecific chronic microvascular ischemic changes. He also had a wrist x-ray followup from previous fracture of the right wrist followed by Dr. Palacios which showed nondisplaced fracture and discoloration of the right wrist, moderate thumb CMC osteoarthritis. HOSPITAL COURSE: Mr. Hansen was admitted for severe dehydration and confusion. He was started on some D5W over multiple days and showed good improvement of his electrolytes with his sodium normalizing. His mentation returned to his baseline level. He was showing some significant deconditioning and after discussion with the family, they requested rehab consultation with [facility], which was completed and the patient was accepted to transfer to [facility] in [place]. PLAN: He was to resume usual diet. Activity to be as per physical therapy an d increase activity as tolerated. Medications at discharge included all previous medications prior to hospitalization. He was to followup with Dr. Galloway in [address] weeks [address] Dr[address] Sun. CONDITION AT DISCHARGE: Stable and improved. DISPOSITION: The patient was transferred via [facility] transportation vehicle to continue with outpatient management and rehab. #[id number] [facility]
== END 2019-01-27 15:40 | DRG 641 ==
LOC: ER 19:30 → MS 22:44
PROVIDERS: ADMIT Nurse Practitioner Acute Care; ATTEND Nurse Practitioner Family
DX: E86.0 Dehydration (principal); N17.9 Acute kidney failure, unspecified; I95.9 Hypotension, unspecified; R40.1 Stupor; E87.0 Hyperosmolality and hypernatremia; E83.41 Hypermagnesemia; K59.00 Constipation, unspecified; G20 Parkinson's disease; F02.80 Dementia in other diseases classified elsewhere, unspecified severity, without behavioral disturbance, psychotic disturbance, mood disturbance, and anxiety; I12.9 Hypertensive chronic kidney disease with stage 1 through stage 4 chronic kidney disease, or unspecified chronic kidney disease; E11.22 Type 2 diabetes mellitus with diabetic chronic kidney disease; N18.9 Chronic kidney disease, unspecified; D64.9 Anemia, unspecified; E87.6 Hypokalemia; Z79.899 Other long term (current) drug therapy

== ENCOUNTER 2019-03-29 13:30 | Emergency (ER) | payer MEDICARE, OTHER ==
[2019-03-29] MEDS ORDERED: SODIUM CHLORIDE 0.9% (FLUSH) 10 ML SYG IV PRN (13:38)
[2019-03-29] MEDS ORDERED: SODIUM CHLORIDE 0.9% 500ML 500 ML IVS ONE (13:40)
[2019-03-29 14:01] VITALS: TEMP 97.5; O2SAT 98
--- NOTE | 2019-03-29 14:18 | RAD ---
EXAM DESCRIPTION: KUB CLINICAL HISTORY: pulled out g-tube COMPARISON: 04 Oct 2018, 22 January 2019 TECHNIQUE: AP portable supine abdomen FINDINGS: The bowel gas pattern is unremarkable. No organomegaly is seen. Numerous surgical clips are seen in the right abdomen. No free air is observed. No bone abnormality of significance is detected. No pathologic calcifications are noted. The G-tube is not identified on this exam. IMPRESSION: A moderate amount of stool is seen throughout the colon consistent with constipation. No G-tube is identified on this exam. Electronically signed by: Angel Freeman MD 03/29/2019 2:17 PM CDT
--- NOTE | 2019-03-29 14:19 | RAD ---
EXAM DESCRIPTION: Chest,1 View CLINICAL HISTORY: altered mental status COMPARISON: 22 January 2019 TECHNIQUE: AP portable chest FINDINGS: Surgical clips are observed in the right axilla. The lungs are free of acute infiltrate. The heart is within range of normal. No pleural fluid is seen. Minimal atelectasis is observed in the left lung base. IMPRESSION: Minimal atelectasis is observed in the left lung base. The chest is otherwise unremarkable. Electronically signed by: Angel Freeman MD 03/29/2019 2:18 PM CDT
[2019-03-29] MEDS ORDERED: WATER FOR INJ 10 ML VIAL INJ ONE (14:26)
--- NOTE | 2019-03-29 14:49 | ED.PDOC ---
History of Present Illness - General Chief Complaint: GI Problem Stated Complaint: pulled out G tube Time Seen by Provider: 03/29/19 13:38 Source: family - History of Present Illness Initial Comments: 74 yo male who is bib EMS from home for pulling out g-tube. 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 Tube was placed around the first week of February, approx 6-8 weeks ago per upholstery department supervisor. 24 [place], no issues since placement. No other new sx's or other complaints, pt has been acting his usual self. Allergies/Adverse Reactions: Allergies NO KNOWN ALLERGY Allergy (Verified 08/14/18 09:00) Home Medications: Ambulatory Orders Roland-3 Fatty Acids [Roland-3 Fish Oil 500 mg] 1 cap PO BID 06/17/18 Ropinirole Hydrochloride [Ropinirole HCl] 1 tablet PO TID 06/17/18 Zonisamide [Zonegran] 75 mg PO DAILY 06/17/18 Carbidopa-Levodopa [Carbidopa/Levodopa 25-100 mg] 1 tab PO QID 08/15/18 Magnesium Oxide [Mag-Ox Tab] 400 mg PO DAILY 01/23/19 Vitamin E [E-400] 400 unit PO MOTH 01/23/19 Memantine [Namenda] 10 mg PO DAILY 03/29/19 Review of Systems - Review of Systems Review of Systems: 03/29/19 16:31 as per HPI All other Systems: Reviewed and Negative Past Medical History (General) - Patient Medical History Hx Seizures: No Hx Stroke: No Hx Dementia: Yes Hx Asthma: No Hx of COPD: No Hx Cardiac Disorders: No Hx Congestive Heart Failure: No Hx Pacemaker: No Hx Hypertension: Yes Hx Thyroid Disease: No Hx Diabetes: No Hx Gastroesophageal Reflux: No Hx Renal Disease: No Hx Cancer: Yes - sarcoma Hx of HIV: No Hx Hepatitis C: No Hx MRSA: No - Vaccination History Hx Tetanus, Diphtheria Vaccination: Yes Hx Influenza Vaccination: Yes Hx Pneumococcal Vaccination: Yes - Social History Hx Tobacco Use: No Hx Chewing Tobacco Use: No Hx Alcohol Use: No Hx Substance Use: No Hx Substance Use Treatment: No Hx Depression: No Hx Physical Abuse: No Hx Emotional Abuse: No Hx Suspected Abuse: No - Female History Patient : No Family Medical History - Family History Mother Family History: Unknown Living Status: Hx Family Cancer: Yes Father Living Status: Cause of : Pancho Physical Exam - Physical Exam General Appearance: Alert, No apparent distress Eye Exam: bilateral normal Ears, Nose, Throat: normal ENT inspection, normal pharynx Neck: non-tender, full range of motion Respiratory: lungs clear, normal breath sounds, no respiratory distress Cardiovascular/Chest: normal peripheral pulses, regular rate, rhythm, no edema, no gallop, no JVD, no murmur Gastrointestinal/Abdominal: normal bowel sounds, non tender, soft, no organomegaly, other - 24 Fr g-tube in patient's hand and displaced from gastrostomy site in center of abdomen which appears patent and with scant serous drainage and no surrounding redness Back Exam: normal inspection Extremity: normal range of motion, non-tender Neurologic: alert, other - answers simple yes/no questions seemingly appropriately, follows simple commands, per upholstery department supervisor at usual baseline mental status/capacity Skin Exam: normal color, warm/dry Lymphatic: no adenopathy Progress - Progress Progress: 03/29/19 14:49 G-gube dislodgment -replaced successfully in ED with 20 Fr g-tube at 2.5 cm at the skin, balloon inflated with 5.5 cc of NS. Position confirmed by aspiration of gastric contents. 24 and 22 Fr tube placements were unsuccessful so the smaller tube had to be placed. -will dc home with upholstery department supervisor in good condition, return warnings discussed, f/u closely with PCP Will Greenfield MD Billing #[id number] - Results/Orders Results/Orders: labs appear largely unremarkable from baseline - EKG/XRAY/CT EKG: Sinus - NSR, HR 70, no ST elevations, intervals normal, left axis devia tion, appears unchanged from 01/22/19 EKG XRAY: chest - minimal atelectasis left lung base, otherwise normal - Additional EKG/XRAY/Consults XRAY #2: abdomen - unremarkable Departure - Departure Clinical Impression: Dislodged gastrostomy tube Disposition: Discharge to Home or Self Care Condition: Fair Departure Forms: ED Discharge - Pt. Copy, Patient Portal Self Enrollment Instructions: Gastrostomy, Permanent and Temporary (DC) Referrals: Janeth Galloway MD [Primary Care Provider] - 1-2 Weeks Home Medications: Ambulatory Orders Roland-3 Fatty Acids [Roland-3 Fish Oil 500 mg] 1 cap PO BID 06/17/18 Ropinirole Hydrochloride [Ropinirole HCl] 1 tablet PO TID 06/17/18 Zonisamide [Zonegran] 75 mg PO DAILY 06/17/18 Carbidopa-Levodopa [Carbidopa/Levodopa 25-100 mg] 1 tab PO QID 08/15/18 Magnesium Oxide [Mag-Ox Tab] 400 mg PO DAILY 01/23/19 Vitamin E [E-400] 400 unit PO MOTH 01/23/19 Memantine [Namenda] 10 mg PO DAILY 03/29/19
[2019-03-29 15:56] VITALS: BP 165/102
== END 2019-03-29 15:40 | disposition home or self-care (01) ==
LOC: ER 13:30
DX: T85.528A Displacement of other gastrointestinal prosthetic devices, implants and grafts, initial encounter (principal); I10 Essential (primary) hypertension; F03.90 Unspecified dementia, unspecified severity, without behavioral disturbance, psychotic disturbance, mood disturbance, and anxiety; Z79.899 Other long term (current) drug therapy; Z85.89 Personal history of malignant neoplasm of other organs and systems
CPT/HCPCS: 36415; 71045; 74018; 80053; 85025; 85610; 85730; 93005; A4216

== ENCOUNTER → 2019-04-23 | Outpatient (CLI) | payer MEDICARE, OTHER | LOC: YCHH 15:05 | PROVIDERS: ATTEND Family Medicine | DX: N18.9 Chronic kidney disease, unspecified (principal); D64.9 Anemia, unspecified ==

== ENCOUNTER 2019-04-28 15:58 | Inpatient (IN) | payer MEDICARE, OTHER ==
[2019-04-28] MEDS ORDERED: SODIUM CHLORIDE 0.9% 1000ML 1,000 ML IVS ONE (16:13)
--- NOTE | 2019-04-28 16:30 | ED.PDOC ---
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 Has been treating with imodium which has turned the stool black. No recent antibx, no sick contacts, no recent travel. Denies f/c, cough, pt complaining of pain anywhere, hematuria. Pt is at neurologic baseline, is disoriented at baseline. Allergies/Adverse Reactions: Allergies NO KNOWN ALLERGY Allergy (Verified 04/28/19 16:21) Home Medications: Ambulatory Orders RX: Randolph-3 Fatty Acids [Randolph-3 Fish Oil 500 mg] 1 cap PO TUTH 06/17/18 RX: Zonisamide [Zonegran] 75 mg PO DAILY 06/17/18 RX: Carbidopa-Levodopa [Carbidopa/Levodopa 25-100 mg] 1 tab PO QID 08/15/18 RX: Magnesium Oxide [Mag-Ox Tab] 400 mg PO DAILY 01/23/19 RX: Vitamin E [E-400] 400 unit PO MOTH 01/23/19 Memantine [Namenda] 10 mg PO DAILY 03/29/19 RX: Ropinirole Hydrochloride [Ropinirole HCl] 1 mg PO TID 04/28/19 Review of Systems - Review of Systems Unable to Obtain Due To: dementia Past Medical History (General) - Patient Medical History Hx Seizures: No Hx Stroke: Yes - TIA Hx Dementia: Yes Hx Asthma: No Hx of COPD: No Hx Cardiac Disorders: No Hx Congestive Heart Failure: No Hx Pacemaker: No Hx Hypertension: No Hx Thyroid Disease: No Hx Diabetes: No Hx Gastroesophageal Reflux: No Hx Renal Disease: No Hx Cancer: Yes - soft tissue sarcoma. Hx of HIV: No Hx Hepatitis C: No Hx MRSA: No Surgical History: other - Vaccination History Hx Tetanus, Diphtheria Vaccination: No Hx Influenza Vaccination: Yes Hx Pneumococcal Vaccination: Yes - Social History Hx Tobacco Use: No Hx Chewing Tobacco Use: No Hx Alcohol Use: Yes - not current Hx Substance Use: No Hx Substance Use Treatment: No Hx Depression: No Hx Physical Abuse: No Hx Emotional Abuse: No Hx Suspected Abuse: No - Female History Patient is a Female of Child Bearing Age (10 -59 yrs old): No Patient : No Family Medical History - Family History Father Living Status: Cause of : Pancho Mother Family History: Unknown Living Status: Hx Family Cancer: Yes Physical Exam - Physical Exam General Appearance: Alert, No apparent distress Eye Exam: bilateral normal Ears, Nose, Throat: hearing grossly normal, other - Dry mucous membranes Respiratory: chest non-tender, lungs clear, normal breath sounds, no respiratory distress, no accessory muscle use Cardiovascular/Chest: normal peripheral pulses, regular rate, rhythm, no edema, no gallop, no JVD, no murmur Peripheral Pulses: radial,right: 2+, radial,left: 2+ Gastrointestinal/Abdominal: normal bowel sounds, soft, no organomegaly, no pulsatile mass, other - Diffuse discomfort Rectal Exam: normal exam, normal rectal tone Extremity: other - Stiff extremities diffusely Neurologic: alert, other - Moving all extremities equally Skin Exam: normal color, warm/dry Progress - Progress Progress: 04/28/19 17:54 Discussed with pt and family results and need for admission, they agree with plan. All questions and concerns addressed. Subsequently discussed with [facility] for hospitalist, accepts for admission. Shakira Lopez MD Emergency Medicine Physician Billing Number [id number] - Results/Orders Results/Orders: 04/28/19 16:13 URINALYSIS Stat 04/28/19 16:28 CLOSTRIDIUM DIFFICILE AG/TOXIN Stat STOOL CULTURE Stat CRYPTOSPORIDIA AG,STOOL Stat NOROVIRUS,EIA STOOL Stat 04/28/19 16:30 Hold Metformin x 48Hrs [id number] 04/28/19 17:39 ED Intent to Admit Routine levoFLOXacin 750MG IV [Levaquin 750MG IV] 750 mg Premix Bag 1 bag IVPB ONCE metroNIDAZOLE IV PREMIX 500MG [Flagyl IV Premix 500 MG/100 ML] 500 mg Premix Bag 1 bag IVPB ONCE Laboratory Results - last 24 hr 04/28/19 04/28/19 04/28/19 16:28 16:36 16:36 WBC 9.6 RBC 4.64 L Hgb 14.0 Hct 41.7 L MCV 89.9 MCH 30.3 MCHC 33.7 RDW 14.8 H Plt Count 281 MPV 7.8 Absolute Neuts (auto) 7.80 H Absolute Lymphs (auto) 1.00 Absolute Monos (auto) 0.60 Absolute Eos (auto) 0.10 Absolute Basos (auto) 0.00 Neutrophils % 81.6 H Lymphocytes % 10.6 L Monocytes % 6.3 Eosinophils % 1.0 Basophils % 0.5 Sodium 136 Potassium 3.4 L Chloride 101 Carbon Dioxide 22 Anion Gap 16.4 BUN 20 H Creatinine 0.84 BUN/Creatinine Ratio 23.8 H Random Glucose 138 H Serum Osmolality 276.8 Calcium 8.4 Phosphorus 4.0 Magnesium 2.1 Total Bilirubin 0.8 AST 20 ALT < 8 L Alkaline Phosphatase 71 Serum Total Protein 5.5 L Albumin 3.1 L Globulin 2.4 Albumin/Globulin Ratio 1.3 Stool Occult Blood 04/28/19 16:59 WBC RBC Hgb Hct MCV MCH MCHC RDW Plt Count MPV Absolute Neuts (auto) Absolute Lymphs (auto) Absolute Monos (auto) Absolute Eos (auto) Absolute Basos (auto) Neutrophils % Lymphocytes % Monocytes % Eosinophils % Basophils % Sodium Potassium Chloride Carbon Dioxide Anion Gap BUN Creatinine BUN/Creatinine Ratio Random Glucose Serum Osmolality Calcium Phosphorus Magnesium Total Bilirubin AST ALT Alkaline Phosphatase Serum Total Protein Albumin Globulin Albumin/Globulin Ratio Stool Occult Blood Negative CT abd/pelvis: EXAM: Abdomen/Pelvis w/Contrast CLINICAL INDICATION: Abdominal pain. COMPARISON: There is no previous study for comparison. TECHNIQUE: The CT scan was done using contiguous axial 5 mm postcontrast sections through the abdomen and pelvis including IV contrast. This exam was performed according to our departmental dose-optimization program, which includes automated exposure contr ol, adjustment of the mA and/or kV according to patient size and/or use of iterative reconstruction technique. FINDINGS: The visualized portions of the lung bases contain foci of subsegmental atelectasis but are otherwise clear. There is a small amount of free fluid overlying the liver. A simple appearing cyst in the left hepatic lobe measures 2.1 x 1.6 cm. The liver and gallbladder are otherwise unremarkable. The kidneys, adrenal glands, spleen, and pancreas are unremarkable. The aorta contains atherosclerotic calcifications without evidence of aneurysm. A G-tube is noted in the stomach. There are no dilated loops of small bowel. The colon appears markedly thickened and inflamed consistent with severe colitis. Additionally the urinary bladder appears thickened and inflamed. There is no free air, or abscess. IMPRESSION: 1. Severe thickening and inflammation of the colon consistent with colitis. 2. Severe thickening and inflamed appearance of the urinary bladder suggesting a UTI. 3. No other acute intra-abdominal process is identified. Trace amount of nonspecific free fluid within the abdomen and pelvis. Electronically signed by: Juan J Jj MD 04/28/2019 5:29 PM [facility] Vital Signs - 24 hr 04/28/19 04/28/19 04/28/19 16:00 16:34 17:00 Temperature 97.3 F L Pulse Rate [ 91 H 91 H 92 H Monitor] Respiratory 18 18 Rate Blood Pressure 143/100 149/109 [L brachial] O2 Sat by Pulse 98 93 L Oximetry Departure - Departure Clinical Impression: Acute colitis Time of Disposition: 17:41 Disposition: Admit Patient Condition: Fair Home Medications: Ambulatory Orders RX: Randolph-3 Fatty Acids [Randolph-3 Fish Oil 500 mg] 1 cap PO TUTH 06/17/18 RX: Zonisamide [Zonegran] 75 mg PO DAILY 06/17/18 RX: Carbidopa-Levodopa [Carbidopa/Levodopa 25-100 mg] 1 tab PO QID 08/15/18 RX: Magnesium Oxide [Mag-Ox Tab] 400 mg PO DAILY 01/23/19 RX: Vitamin E [E-400] 400 unit PO MOTH 01/23/19 Memantine [Namenda] 10 mg PO DAILY 03/29/19 RX: Ropinirole Hydrochloride [Ropinirole HCl] 1 mg PO TID 04/28/19
--- NOTE | 2019-04-28 17:31 | CT ---
EXAM: Abdomen/Pelvis w/Contrast CLINICAL INDICATION: Abdominal pain. COMPARISON: There is no previous study for comparison. TECHNIQUE: The CT scan was done using contiguous axial 5 mm postcontrast sections through the abdomen and pelvis including IV contrast. This exam was performed according to our departmental dose-optimization program, which includes automated exposure control, adjustment of the mA and/or kV according to patient size and/or use of iterative reconstruction technique. FINDINGS: The visualized portions of the lung bases contain foci of subsegmental atelectasis but are otherwise clear. There is a small amount of free fluid overlying the liver. A simple appearing cyst in the left hepatic lobe measures 2.1 x 1.6 cm. The liver and gallbladder are otherwise unremarkable. The kidneys, adrenal glands, spleen, and pancreas are unremarkable. The aorta contains atherosclerotic calcifications without evidence of aneurysm. A G-tube is noted in the stomach. There are no dilated loops of small bowel. The colon appears markedly thickened and inflamed consistent with severe colitis. Additionally the urinary bladder appears thickened and inflamed. There is no free air, or abscess. IMPRESSION: 1. Severe thickening and inflammation of the colon consistent with colitis. 2. Severe thickening and inflamed appearance of the urinary bladder suggesting a UTI. 3. No other acute intra-abdominal process is identified. Trace amount of nonspecific free fluid within the abdomen and pelvis. Electronically signed by: Juan J Jj MD 04/28/2019 5:29 PM [employer]
[2019-04-28] MEDS ORDERED: levoFLOXacin 750MG IV 750 MG in PREMIX BAG 1 BAG IVPB ONE (17:39)
[2019-04-28] MEDS ORDERED: metroNIDAZOLE IV PREMIX 500MG 500 MG in PREMIX BAG 1 BAG IVPB ONE (17:39)
[2019-04-28] MEDS ORDERED: metroNIDAZOLE IV PREMIX 500MG 100 ML IVPB ONE ×2 (17:41→21:51)
--- NOTE | 2019-04-28 18:26 | HP ---
SUPERVISING PHYSICIAN: Power Valentin MD CHIEF COMPLAINT: Diarrhea for three days. HISTORY OF PRESENT ILLNESS: Mr. Hansen 74-year-old male patient who has a longstanding history of dementia and Parkinson's. The patient is nonverbal and most of the history is obtained from family members including his . His reports that he has been having diarrhea for the last 3 days with up to 6 to 7 episodes per day. She had been treating him with [id number] medications including Imodium. She denied any recent antibiotic coverage. He was in the hospital in January of this year at [place] for hyponatremia and dehydration. He was discharged to [facility] and eventually had a G-tube placed due to the fact that he was high risk for aspiration. He currently resides at home with his who has been managing his feedings. She denied that he had any fevers, chills or any significant change baseline mental status. Initial laboratory studies showed he had a normal white count at 9,600, hemoglobin 14, hematocrit 41.7, differential showed just a slight left shift. Chemistries showed a mild hypokalemia with a potassium of 3.4, BUN 20, creatinine 0.84. Liver functions were all within normal limits. Urinalysis was showing to be within normal limits. A CT of the abdomen was completed and per radiology interpretation, showed severe thickening and inflammation of the colon that was consistent with colitis. Given the findings on CT, the patient's immobility and severe debilitation and chronic diarrhea, the Emergency Room physician requested the patient be admitted for further investigation and judicious treatment of antibiotics for colitis as noted on CT scan. He is admitted in stable condition. PAST MEDICAL HISTORY: 1. Parkinson's disease. 2. Hypertension. 3. Diabetes mellitus, type 2. 4. Dementia. PAST SURGICAL HISTORY: 1. Recent G-tube placement for feeding purposes. 2. 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 3. Chest wall surgery due to some cellulitis. MEDICATIONS: 1. Zonegran 75 mg daily. 2. Vitamin 400 units Tuesday to . 3. Ropinirole 1 mg t.i.d. 4. Carpenter fatty fish acids, 1 capsule Tuesdays and . 5. Nutritional supplement, Jevity 1.2 calories as directed. 6. Namenda 10 mg daily. 7. Magnesium oxide 400 mg. 8. Carbidopa/Levodopa 25/100 mg, 1 tablet q.i.d. ALLERGIES: NO KNOWN DRUG ALLERGIES. SOCIAL HISTORY: The patient lives at home with his who has caretakers that are CNAs. He has no history of tobacco or illicit drug use. He has resided in care homes including [facility] in the last year. FAMILY HISTORY: Not available. REVIEW OF SYSTEMS: Unobtainable due to the patient's mental status and inability to communicate for review of systems obtained from patient's family members. CONSTITUTIONAL: Denied any recent subjective fever or chills. HEENT: No reported headaches. sore throat, ear aches, nasal congestion. RESPIRATORY: No reported shortness of breath, coughing or wheezing. CARDIAC: No reported chest pain, diaphoresis or palpitations. GI: As noted in history of present illness. Persistent diarrhea and recent G- tube placement. : He utilizes a brief but denies any dysuria, hematuria or polyuria. EXTREMITIES: No change from baseline. NEUROLOGIC: No reported history of seizures. He does have ataxia due to chronic worsening Parkinson's but no significant change from baseline per family members. SKIN: Reported chronic breakdown to the coccyx area due to immobility and chronic diarrhea. PHYSICAL EXAMINATION: VITAL SIGNS: Temperature 97.4. Heart rate 80. Blood pressure 135/98. Respiratory rate 16. Oxygen saturation 94% on room air. GENERAL: The patient is resting comfortably and appears to be in no acute distress. He is alert to verbal stimulus and reportedly at baseline mental status per . He does look thin in appearance but well hydrated. HEENT: Tympanic membranes are clear bilaterally. Oropharynx is pink and moist without any notable lesions. NECK: Supple, non-tender, full range of motion, no jugular venous distention. CHEST: Lung sounds were clear, diminished toward the bases. No rhonchi, rales, or wheezes. CARDIOVASCULAR: Regular rate and rhythm without appreciable murmurs, gallops, or rubs. GASTROINTESTINAL: Abdomen is soft with some tenderness noted on palpation diffusely with G-tube in place without any signs of infection. SKIN: He does have an operative site to the right chest and right back. They appear to be healing well. En[place] are still in place. RECTAL: Exam deferred, it was done in the ER by the Emergency Room physician and showed normal rectal tone. EXTREMITIES: Mild contractures bilaterally but no cyanosis, clubbing or edema. All extremities are thin in appearance. There was some skin breakdown on the lateral aspect of the left foot with a dressing in place which is being addressed by Home Health chronically. NEUROLOGIC: He is alert, he is able to move all extremities slowly and will follow basic commands. No obvious focal or motor deficits noted. Cranial nerves II through XII are grossly intact but difficult to fully assess. His reports that he appears to be at his normal baseline status. SKIN: Warm, pink and dry. There is notable breakdown to the coccyx area. There is a dressing place on the lower left lower extremity with this being followed by Home Health. LABORATORY: White count 9,600, hemoglobin 14, hematocrit 41.7, platelet count at 281,000. Differential shows just a slight left shift. Chemistries showed a sodium of 136 with potassium 3.4, BUN 20, creatinine 0.84, glucose 138. Liver functions within normal limits. Urine within normal limits. Stool occult blood was negative. Glucose pending. C-difficile, toxin A and B positive for both toxin and antigen. RADIOLOGY: CT of the abdomen and chest showed severe thickening and inflammation of the colon consistent with colitis. There was note of some severe thickening in appearance of the urinary bladder with suggestion of urinary tract infection. No other intraabdominal acute findings noted. IMPRESSION: 1. Clostridioides difficile infectious colitis. 2. Parkinson's disease with severe debility with G-tube placement. 3. Hypertension. 4. Diabetes mellitus type 2. 5. Severe dementia exacerbated by Parkinson's disease. PLAN: Mr. Hansen is going to be admitted for initiation and treatment of Clostridioides difficile infection. Initially, he was given Flagyl and Levaquin in the Emergency Room. I switched him to oral vancomycin via his G-tube, 125 mg every 6 hours. He had been on enteric isolation. Will continue his tube feedings and get a nutritional consultation. I will start him on some probiotics including yogurt. Will monitor his labs. Will give him a little bit of fluids overnight and readdress it in the morning. I will resume his medications as they are undated and verified. He will be on DVT prophylaxis per protocol with Lovenox. Anticipate his length of stay to be at least 2 to 3 days. Until we can transition him to outpatient management, we will continue to monitor and treat as needed. #[id number] [facility]
[2019-04-28] MEDS ORDERED: ACETAMINOPHEN 325 MG TAB PO PRN (20:46)
[2019-04-28] MEDS ORDERED: ONDANSETRON INJ 4 MG/2 ML VIAL IV PRN (20:46)
[2019-04-28] MEDS ORDERED: MORPHINE SULFATE INJ 10 MG/ML VIAL IV PRN (20:46)
[2019-04-28] MEDS ORDERED: DEXTROSE 50% 25 GM/50 ML SYG IV PRN (20:46)
[2019-04-28] MEDS ORDERED: GLUCAGON INJ 1 MG VIAL SUBCU PRN (20:46)
[2019-04-28] MEDS ORDERED: SODIUM CHLORIDE 0.9% (FLUSH) 10 ML SYG IV PRN (20:46)
[2019-04-28] MEDS ORDERED: KCL 20MEQ/0.45% NS 1,000 ML IVS PRN (20:55)
[2019-04-28] MEDS ORDERED: IV SET AND CAP CHANGE INJ INJ SCH (21:00)
[2019-04-28] MEDS: INSULIN LISPRO 100 UNITS/ML PEN SUBCU SCH (22:12)
[2019-04-29] MEDS: metroNIDAZOLE IV PREMIX 500MG 500 MG in PREMIX BAG 1 BAG IVPB SCH ×2 (02:03→09:23)
[2019-04-29] MEDS ORDERED: ZONISAMIDE 25 MG CAP PO ONE (07:41)
[2019-04-29] MEDS ORDERED: metroNIDAZOLE IV PREMIX 500MG 100 ML IVPB ONE (07:41)
[2019-04-29] MEDS: INSULIN LISPRO 100 UNITS/ML PEN SUBCU SCH ×4 (07:45→21:40)
[2019-04-29] MEDS ORDERED: ACETAMINOPHEN 325 MG TAB GT PRN (08:00)
[2019-04-29] MEDS: ZONISAMIDE 25 MG CAP PO SCH (08:11)
[2019-04-29] MEDS: MAGNESIUM OXIDE 400 MG TAB GT SCH (08:17)
[2019-04-29] MEDS: MEMANTINE 10 MG TAB GT SCH (08:18)
--- NOTE | 2019-04-29 08:43 | RAD ---
EXAM: XR Abdomen, 2 Views CLINICAL HISTORY: acute colitis TECHNIQUE: Frontal view of the abdomen/pelvis with upright view of the abdomen. COMPARISON: No relevant prior studies available. FINDINGS: Limitations: None. Intraperitoneal space: No free air. Gastrointestinal tract: Air scattered throughout prominent bowel loops throughout the abdomen. Organs: There is excreted contrast in the bladder. Bones/joints: Unremarkable. Soft tissues: Multiple surgical clips present throughout the abdomen. Tubes, lines and devices: Gastrostomy tube noted with the balloon projecting in the right lower abdomen unchanged. IMPRESSION: Nonspecific, nonobstructive intestinal gas pattern. Electronically signed by: Adalgisa Granados MD 04/29/2019 8:42 AM [employer]
[2019-04-29] MEDS ORDERED: VANCOMYCIN ORAL LIQUID 2,000 MG/80 ML BOTTLE GT SCH (09:00)
[2019-04-29] MEDS: CARBIDOPA/LEVODOPA 25/100 1 TAB PO SCH ×4 (09:23→20:42)
[2019-04-29] MEDS: VANCOMYCIN ORAL LIQUID 2,000 MG/80 ML BOTTLE GT SCH ×3 (09:24→20:43)
[2019-04-29] MEDS: FREE WATER GT SCH ×2 (09:30→13:18)
[2019-04-29] MEDS ORDERED: NUTRITIONAL SUPPLEMENTS PEG SCH (09:30)
[2019-04-29] MEDS: ENTERAL NUTRITION FORMULA GT SCH ×5 (09:30→20:42)
[2019-04-29] MEDS ORDERED: ENTERAL NUTRITION FORMULA GT SCH ×2 (12:30→18:00)
[2019-04-29] MEDS ORDERED: SODIUM CHLORIDE 0.9% (FLUSH) 10 ML SYG IV PRN (12:31)
[2019-04-29] MEDS ORDERED: FREE WATER GT SCH (18:00)
[2019-04-29] MEDS ORDERED: levoFLOXacin 500MG IV 500 MG in PREMIX BAG 1 BAG IVPB SCH (18:00)
[2019-04-29] MEDS: ENOXAPARIN SODIUM 40 MG/0.4 ML SYG SUBCU SCH (20:42)
[2019-04-29] MEDS: BIFIDOBACTERIUM INFANTIS 4 MG CAP PO SCH (20:42)
[2019-04-30] MEDS: ENTERAL NUTRITION FORMULA GT SCH ×6 (00:49→20:44)
[2019-04-30] MEDS: VANCOMYCIN ORAL LIQUID 2,000 MG/80 ML BOTTLE GT SCH ×4 (02:40→20:45)
[2019-04-30] MEDS: INSULIN LISPRO 100 UNITS/ML PEN SUBCU SCH ×4 (07:57→20:43)
--- NOTE | 2019-04-30 08:13 | PN ---
DATE: 04/29/19 SUPERVISING PHYSICIAN: Power Valentin MD SUBJECTIVE: The patient continues to have multiple episodes of diarrhea. In talking to his , he normally has 1 to 2 bowel movements a day but currently is having around 4 to 5. It was noted that it seems to be slowing down once he was started on the vancomycin with the PEG tube. He has been afebrile. He has not had any other complaints with nausea or vomiting. No reported chest pain. OBJECTIVE: VITAL SIGNS: Temperature 97.8, pulse 81, blood pressure 124/86, respirations 20, oxygen saturation 95% on room air. Weight 61.8 kg. Again, he has had multiple bowel movements. GENERAL: The patient is resting comfortably and appears to be in no acute distress. CHEST: Clear to auscultation, just slightly diminished toward the bases. HEART: Regular rate and rhythm. ABDOMEN: Soft with bowel sounds present. G-tube remains in place. Midabdomen with no signs of infection. NEUROLOGIC: He is alert to voice but does not converse and per his at bedside, he has not had any change in baseline mental status. SKIN: He continues to have some breakdown on his coccyx area due to chronic diarrhea. LABORATORY: White count 7,900, hemoglobin 12.1, hematocrit 35.7, platelet count 251,000. Differential shows to be resolving in regards to a left shift. Chemistries show sodium 134, potassium down a little bit to 3.1, anion gap normal at 13, BUN 17, creatinine 0.84, blood sugars remain stable between 115 and 137, calcium 8.1. MICROBIOLOGY: Stool cultures are pending. RADIOLOGY: Abdominal x-ray this morning per radiology interpretation showed nonspecific, nonobstructive intestinal gas pattern. ASSESSMENT: 1. 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 2. Parkinson's disease with severe debility with G-tube in place. 3. Mild electrolyte imbalance with hypokalemia and hyponatremia, likely due to tube feedings, 4. Hypertension 5. Diabetes mellitus type 2. 6. Severe dementia exacerbated by Parkinson's disease. PLAN: Will continue with vancomycin for treatment of C. difficile colitis via his G-tube. I stopped his Flagyl and Levaquin. He does remain on tube feedings. I have ordered a nutritional consultation to further assist in management. I have started him on probiotics, include some yogurt. Hopefully, with a better volume of tube feedings with the vancomycin, we will see some slowing down of his diarrhea. We will watch the skin breakdown and treat accordingly. If his vitals and labs are stable in the next 48 to 72 hours, we can discharge him home to continue with treatment with oral vancomycin. Until then, we will continue to monitor and treat as needed. #[id number] [facility]
[2019-04-30] MEDS: ZONISAMIDE 25 MG CAP PO SCH (08:49)
[2019-04-30] MEDS: MAGNESIUM OXIDE 400 MG TAB GT SCH (08:49)
[2019-04-30] MEDS: MEMANTINE 10 MG TAB GT SCH (08:49)
[2019-04-30] MEDS: CARBIDOPA/LEVODOPA 25/100 1 TAB PO SCH ×4 (08:49→20:43)
[2019-04-30] MEDS: BIFIDOBACTERIUM INFANTIS 4 MG CAP PO SCH (08:49)
--- NOTE | 2019-04-30 14:59 | PN ---
SUPERVISING PHYSICIAN: Cynthia Sun MD DATE: 04/30/19 SUBJECTIVE: The patient is having much less bowel movements since last night after being started on vancomycin. He was conversing this morning with nurses. He has had no other complaints. OBJECTIVE: VITAL SIGNS: Temperature 98.7. Pulse 75. Blood pressure 142/81. Respirations 18. Saturation 94% on room air. Weight 61.8 kg. GENERAL: The patient is resting comfortably this morning. He is actually much more alert, trying to converse during exam. His kids are at the bedside and note he is much more interactive today. CHEST: Clear, just slightly diminished toward the bases. HEART: Regular rate and rhythm. ABDOMEN: Soft, nontender. Positive bowel sounds. G-tube in place without complications. EXTREMITIES: Without edema. NEUROLOGIC: He is alert and at baseline levels with no focal motor deficits noted. LABORATORY: Chemistries show normal electrolytes except for just some mild low potassium at 3.2, BUN 19, creatinine 0.83. Magnesium 1.9. Blood sugar ranged from 108 and 162. ASSESSMENT: 1. 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 2. Parkinson's disease with severe debility with G-tube in place. 3. Mild electrolyte imbalance to include hypokalemia and hyponatremia, now with resolved hyponatremia, just showing a continued mild hypokalemia. 4. Hypertension 5. Diabetes mellitus, type 2. 6. Severe dementia exacerbated by Parkinson's disease. PLAN: We will continue with current antibiotic treatment with vancomycin through G-tube. I did discuss the fact that he would benefit from a change in the formulary of his tube feeding to a more concentrated solution and decrease in the volume which apparently he has not been tolerating very well due to the diarrhea which may be resulting in the C. difficile. I would anticipate that he would discharge tomorrow should he show continued improvement. Until we can discharge home, we will continue to monitor and treat as needed. #[id number] [facility]
[2019-04-30] MEDS: ENOXAPARIN SODIUM 40 MG/0.4 ML SYG SUBCU SCH (20:43)
[2019-05-01] MEDS: ENTERAL NUTRITION FORMULA GT SCH ×3 (01:10→08:23)
[2019-05-01] MEDS: VANCOMYCIN ORAL LIQUID 2,000 MG/80 ML BOTTLE GT SCH ×2 (02:57→08:23)
[2019-05-01] MEDS: INSULIN LISPRO 100 UNITS/ML PEN SUBCU SCH (07:20)
[2019-05-01 08:15] VITALS: BP 143/84; TEMP 97.5; O2SAT 94
[2019-05-01] MEDS: MAGNESIUM OXIDE 400 MG TAB GT SCH (08:23)
[2019-05-01] MEDS: ZONISAMIDE 25 MG CAP PO SCH (08:23)
[2019-05-01] MEDS: BIFIDOBACTERIUM INFANTIS 4 MG CAP PO SCH (08:23)
[2019-05-01] MEDS: CARBIDOPA/LEVODOPA 25/100 1 TAB PO SCH (08:23)
[2019-05-01] MEDS: MEMANTINE 10 MG TAB GT SCH (08:23)
[2019-05-01] MEDS ORDERED: POTASSIUM CHLORIDE ELIXIR 20 MEQ/15 ML UD PO ONE (08:58)
[2019-05-01] MEDS ORDERED: POTASSIUM CHLORIDE ELIXIR 20 MEQ/15 ML UD ONE (09:26)
--- NOTE | 2019-05-01 11:56 | DS ---
SUPERVISING PHYSICIAN: Cynthia Sun MD DISCHARGE DIAGNOSIS: 1. 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 2. Parkinson's disease with severe debility with G-tube in place. 3. Mild electrolyte imbalance to include hypokalemia and hyponatremia, now with resolved hyponatremia, just showing a continued mild hypokalemia. 4. Hypertension 5. Diabetes mellitus, type 2. 6. Severe dementia exacerbated by Parkinson's disease. HISTORY OF PRESENT ILLNESS: This is a 74-year-old male patient who has a longstanding history of dementia and Parkinson's disease. The patient is nonverbal and most of the history is obtained from family members including his . The patient had been having diarrhea for 3 days prior to his admission with up to 6 to 7 episodes per day. She had treated him with xlrs-vol-opwrnsl medications including Imodium. There has been no recent antibiotic medications. He was in the hospital in January of this year at [facility] for hyponatremia and dehydration. He was discharged to [facility] and eventually had a G-tube placed due to his high risk for aspiration. He currently resides at home with his and 24-hour per day caretakers. His has been managing his feedings. He presently gets Gevity 1.2 one can every 4 hours with 45 mL of free water prior and 45 mL of free water after each feeding, for a total of about 2 liters daily. She denied that he had any fevers, chills or any significant change baseline mental status. Initial laboratory studies showed he had a white count at 9,600, hemoglobin 14, hematocrit 41.7, differential showed just a slight left shift. Chemistries showed a mild hypokalemia with a potassium of 3.4, BUN 20, creatinine 0.84. Liver functions were all within normal limits. Urinalysis was within normal limits. A CT of the abdomen was completed and per radiology interpretation showed severe thickening and inflammation of the colon that was consistent with colitis. Due to his immobility, severe debilitation and chronic diarrhea, the patient was admitted to the hospital for treatment with antibiotics for colitis. He was admitted in stable condition. HOSPITAL COURSE: The patient was admitted for initiation of treatment for C. difficile infection. He was given Flagyl and Levaquin in the Emergency Room. He was switched to vancomycin via G-tube. He is on enteric isolation. Nutritional consultation was done. He was also started on probiotics as well as yogurt. He was given DVT prophylaxis with Lovenox. Over his stay, his clinical condition improved. His stool has firmed up. There were no further complaints of nausea or vomiting. His Flagyl and Levaquin were discontinued. The customer field representative called today for recommendations on his tube feedings and at this point, she said he could be discharged on his Gevity as previous ordered, but that she would do some research and would call back with recommendations for tube feedings. LABORATORY: Followup CBC was basically unremarkable. Glucose has run between 92 and 162. Potassium is slightly low at 3.2 and he received potassium supplementation. His calcium is also slightly low at 8.0, but the remainder of his electrolytes are within normal limits. Stool culture is pending. C. difficile was positive for the antigen as well as the toxin. RADIOLOGY: CT of the abdomen and pelvis is as per history of present illness. Abdominal x-ray shows nonspecific, nonobstructing intestinal gas pattern. DISCHARGE PLAN: The patient will be discharged home in stable condition. He has 24 hour a day caregivers. He is to resume his tube feedings as previously ordered on Gevity 1.2, one can every 4 hours with 40 mL of free water prior to his feeding and 45 mL after his feeding. As soon as the customer field representative reviews his chart, I will call his for tube feeding changes an those will be ordered. In addition to his home medications, he is to continue his oral vancomycin as well as probiotics. He is to followup with Dr. Sun within the next one to two weeks. He is to return to the hospital for any problems or complications. DISCHARGE MEDICATIONS: 1. [place] 3 fish oil. 2. Zonegran. 3. Carbidopa/levodopa. 4. Vitamin E. 5. Magnesium oxide. 6. Namenda. 7. Ropinirole. 8. Align. 9. Vancomycin oral liquid 125 mg q.6h. times 10 days. #[id number] [facility]
== END 2019-05-01 12:00 | disposition home or self-care (01) | DRG 372 ==
LOC: ER 15:58 → OBSVTOIN 18:25 → MS 18:25
PROVIDERS: ADMIT Nurse Practitioner Acute Care; ATTEND Nurse Practitioner Acute Care
PROC: BW211ZZ Computerized Tomography (CT Scan) of Abdomen and Pelvis using Low Osmolar Contrast (ICD-10-PCS; principal; 2019-04-28)
DX: A04.72 Enterocolitis due to Clostridium difficile, not specified as recurrent (principal); E87.1 Hypo-osmolality and hyponatremia; G20 Parkinson's disease; E87.6 Hypokalemia; F02.80 Dementia in other diseases classified elsewhere, unspecified severity, without behavioral disturbance, psychotic disturbance, mood disturbance, and anxiety; I10 Essential (primary) hypertension; E11.9 Type 2 diabetes mellitus without complications; Z93.1 Gastrostomy status; Z86.73 Personal history of transient ischemic attack (TIA), and cerebral infarction without residual deficits; Z79.899 Other long term (current) drug therapy

== ENCOUNTER 2019-08-23 09:04 | Emergency (ER) | payer MEDICARE, OTHER ==
--- NOTE | 2019-08-23 09:27 | ED.PDOC ---
History of Present Illness - General Time Seen by Provider: 08/23/19 09:24 Additional Information: Patient presents to the ED with chief complaint per family of G-tube falling out today. Patient has dementia and is bedbound from a stroke. Patient was seen in the ED yesterday and had a G-tube replaced but it came out again today when family went to stand patient up. Family has no other concerns for patient. They deny nausea, vomiting, fever, chills. History is entirely per family, ayse ent is severely demented. - History of Present Illness Allergies/Adverse Reactions: Allergies NO KNOWN ALLERGY Allergy (Verified 08/23/19 09:10) Home Medications: Ambulatory Orders [place]-3 Fatty Acids [[place]-3 Fish Oil 500 mg] 1 cap PO TUTH 06/17/18 Zonisamide [Zonegran] 75 mg PO DAILY 06/17/18 Carbidopa-Levodopa [Carbidopa/Levodopa 25-100 mg] 1 tab PO QID 08/15/18 Magnesium Oxide [Mag-Ox Tab] 400 mg PO DAILY 01/23/19 Vitamin E [E-400] 400 unit PO MOTH 01/23/19 Memantine [Namenda] 10 mg PO DAILY 03/29/19 Ropinirole Hydrochloride [Ropinirole HCl] 1 mg PO TID 04/28/19 Nutritional Supplements [Jevity 1.2 Mis[place]] 1 liq PEG Q4H 04/29/19 Bifidobacterium Infantis [Align] 4 mg PO DAILY cap 05/01/19 Vancomycin Oral Liquid 125 mg GT Q6H 10 Days #200 ml 05/01/19 Review of Systems - Review of Systems Constitutional: Denies: chills, fever Respiratory: Denies: cough All other Systems: No Change from Baseline Past Medical History (General) - Patient Medical History Hx Seizures: No Hx Stroke: Yes - TIA Hx Dementia: Yes Hx Asthma: No Hx of COPD: No Hx Cardiac Disorders: No Hx Congestive Heart Failure: No Hx Pacemaker: No Hx Hypertension: Yes Hx Thyroid Disease: No Hx Diabetes: No Hx Gastroesophageal Reflux: No Hx Renal Disease: No Hx Cancer: Yes - soft tissue sarcoma. Hx of HIV: No Hx Hepatitis C: No Hx MRSA: No - Vaccination History Hx Tetanus, Diphtheria Vaccination: No Hx Influenza Vaccination: Yes Hx Pneumococcal Vaccination: Yes - Social History Hx Tobacco Use: No Hx Chewing Tobacco Use: No Hx Alcohol Use: Yes - not current Hx Substance Use: No Hx Substance Use Treatment: No Hx Depression: No Hx Physical Abuse: No Hx Emotional Abuse: No Hx Suspected Abuse: No - Female History Patient : No Family Medical History - Family History Mother Family History: Unknown Living Status: Hx Family Cancer: Yes Father Living Status: Cause of : P[place] Physical Exam - Physical Exam General Appearance: Alert, Comfortable, No apparent distress, Other - Patient appears bedbound with severely limited mobility. Respiratory: chest non-tender, lungs clear, normal breath sounds, no respiratory distress Cardiovascular/Chest: normal peripheral pulses, regular rate, rhythm, no edema Gastrointestinal/Abdominal: normal bowel sounds, non tender, soft, other - G- tube os in left upper abdomen without discharge or peripheral erythema. Neurologic: other - Nonverbal, hemiplegic Progress - Progress Progress: 08/23/19 09:29 Replacement 20 [place] G-tube easily placed and balloon inflated with 10 mL's of normal saline. Immediate reflux of yellow gastric contents into the tube. There are no active medical issues, patient to follow-up with his PCP as needed. Family happy with plan. 08/23/19 10:27 KUB noted with good G-tube position. Departure - Departure Clinical Impression: Dislodged gastrostomy tube Time of Disposition: 09:32 Disposition: Discharge to Home or Self Care Condition: Fair Instructions: Enteral Feeding Referrals: ANDREA VERA MD [Primary Care Provider] - 1-2 Weeks Home Medications: Ambulatory Orders [place]-3 Fatty Acids [[place]-3 Fish Oil 500 mg] 1 cap PO TUTH 06/17/18 Zonisamide [Zonegran] 75 mg PO DAILY 06/17/18 Carbidopa-Levodopa [Carbidopa/Levodopa 25-100 mg] 1 tab PO QID 08/15/18 Magnesium Oxide [Mag-Ox Tab] 400 mg PO DAILY 01/23/19 Vitamin E [E-400] 400 unit PO MOTH 01/23/19 Memantine [Namenda] 10 mg PO DAILY 03/29/19 Ropinirole Hydrochloride [Ropinirole HCl] 1 mg PO TID 04/28/19 Nutritional Supplements [Jevity 1.2 Misbah] 1 liq PEG Q4H 04/29/19 Bifidobacterium Infantis [Align] 4 mg PO DAILY cap 05/01/19 Vancomycin Oral Liquid 125 mg GT Q6H 10 Days #200 ml 05/01/19
[2019-08-23 09:43] VITALS: TEMP 97.6
--- NOTE | 2019-08-23 09:58 | RAD ---
EXAM DESCRIPTION: KUB CLINICAL HISTORY: 74 years Male, G-tube placement COMPARISON: Radiograph of the abdomen dated 08/22/2019. TECHNIQUE: 1 view of the abdomen was performed. FINDINGS: Multiple air distended bowel loops are identified with no evidence of bowel obstruction. Large amount of fecal material is identified. No abnormal calcifications are noted. IMPRESSION: Severe constipation. Percutaneous gastrostomy tube is noted with the tip overlying the left upper quadrant of the abdomen. Electronically signed by: Violeta Rangel MD 08/23/2019 9:56 AM CDT
[2019-08-23 10:06] VITALS: O2SAT 98
[2019-08-23] MEDS ORDERED: cloNIDine HCL 0.1 MG TAB PO ONE (10:41)
[2019-08-23 11:03] VITALS: BP 198/118
== END 2019-08-23 10:55 | disposition home or self-care (01) ==
LOC: ER 09:04
DX: Z43.1 Encounter for attention to gastrostomy (principal); F03.90 Unspecified dementia, unspecified severity, without behavioral disturbance, psychotic disturbance, mood disturbance, and anxiety; Z86.73 Personal history of transient ischemic attack (TIA), and cerebral infarction without residual deficits; Z74.01 Bed confinement status; I10 Essential (primary) hypertension; Z85.831 Personal history of malignant neoplasm of soft tissue; Z79.899 Other long term (current) drug therapy